=== PATIENT | male | born 1960 | race Caucasian/White ===

== ENCOUNTER 2017-05-19 20:20 | Inpatient (IN) | payer BC ==
[~2017-05-19] VITALS: Ht 162.6 cm; Wt 80.4 kg
[~2017-05-19 20:20] MED LIST: ASPI81TA3 PO; ATOR40TA68 PO; CARV6.2579 PO; ERGO500014 PO; FER325 PO; HYD25 PO; HYDR-906 PO; INSU100I31 SQ; METF500T4 PO; ONDA4TAB8 PO; PANT40TA4 PO
[2017-05-19] MEDS ORDERED: ONDANSETRON 4 MG INJ IV STA (20:40)
[2017-05-19] MEDS ORDERED: NITROGLYCERIN 2% 1 GM OINT PKT TD STA (20:40)
[2017-05-19] MEDS ORDERED: morphine 4 MG/ML VIAL IV STA (20:40)
[2017-05-19 21:00] LABS: BASOPHILS % 0.5 % (0.0-2.0); EOSINOPHILS # 0.1 10^3/ul (0.0-0.5); EOSINOPHILS % 1.7 % (0.0-7.0); HEMATOCRIT 42.9 % (42.0-52.0); HEMOGLOBIN 14.9 g/dl (14.0-18.0); LYMPHOCYTES # 2.7 10^3/ul (0.8-2.9); LYMPHOCYTES % 31.7 % (15.0-51.0); MEAN CORPUSCULAR HEMOGLOBIN 30.3 pg (29.0-33.0); MEAN CORPUSCULAR HGB CONC 34.7 g/dl (32.0-37.0); MEAN CORPUSCULAR VOLUME 87.4 fl (82.0-101.0); MEAN PLATELET VOLUME 11.8 fl (7.4-10.4); MONOCYTE # 0.7 10^3/ul (0.3-0.9); MONOCYTES % 7.9 % (0.0-11.0); NEUTROPHILS % 57.7 % (39.0-77.0); PLATELET COUNT 199 10^3/UL (140-415); RED BLOOD COUNT 4.91 10^6/ul (4.70-6.10); RED CELL DISTRIBUTION WIDTH 12.1 % (11.5-14.5); WHITE BLOOD COUNT 8.4 10^3/ul (4.8-10.8)
[2017-05-19 21:09] LABS: INR 0.81; PROTIME 11.2 Sec (12.2-14.2); PT RATIO 0.9
[2017-05-19 21:13] LABS: ALANINE AMINOTRANSFERASE 43 IU/L (13-69); ALBUMIN 4.5 g/dl (3.3-4.9); ALBUMIN/GLOBULIN RATIO 1.45; ALKALINE PHOSPHATASE 74 IU/L (42-121); ANION GAP 18 (8-16); ASPARTATE AMINO TRANSFERASE 25 IU/L (15-46); BILIRUBIN,INDIRECT 0.1 mg/dl (0-1.1); BILIRUBIN,TOTAL 0.1 mg/dl (0.2-1.3); BLOOD UREA NITROGEN 21 mg/dl (7-20); CALCIUM 9.6 mg/dl (8.4-10.2); CARBON DIOXIDE 25 mmol/L (21-31); CHLORIDE 97 mmol/L (97-110); CREATININE 0.94 mg/dl (0.61-1.24); GLUCOSE 330 mg/dl (70-220); SODIUM 136 mmol/L (135-144); TOTAL PROTEIN 7.6 g/dl (6.1-8.1)
[2017-05-19 21:25] LABS: TROPONIN-I < 0.012 ng/ml (0.00-0.12)
--- NOTE | 2017-05-19 21:52 | ERA ---
ER Documentation Chief Complaint Date/Time DATE: 05/19/17 TIME: 21:47 Chief Complaint R20, cp x3hrs gradual pressure unprovoked, radiating down lt arm, asp, nitr HPI bThis is a 56-year-old male with a history of cardiac bypass on July 16, 2016 at [facility]. The patient's patient support tech is Dr. León. The patient was brought in for chest pain. Patient states a few hours ago he developed some substernal chest pressure going on his left arm or shortness of breath and diaphoresis. The paramedics called and said it was a code STEMI however on arrival to patient just has a left bundle branch block and he is pain-free. He was given an aspirin and 3 sprays of nitroglycerin to relieve his pain. The patient had a stroke in 2008 lifting with some mild deficits in the left arm and leg. He says these tend to wax and wane in severity. ROS All systems reviewed and are negative except as per history of present illness. Medications Home Meds Active Scripts Ondansetron Hcl* (Zofran*) 4 Mg Tablet, 4 MG PO Q8H Y for NAUSEA AND/OR VOMITING , #20 TAB 0 Refills Prov:TABATHA HAWKINS 09/13/16 Hydrocodone/Acetaminophen (Dewey 5-325 Tablet) 1 Each Tablet, 2 TAB PO Q6H Y for PAIN, #20 TAB 0 Refills Prov:TABATHA HAWKINS 09/13/16 Pantoprazole* (Pantoprazole*) 40 Mg Tablet.dr, 40 MG PO DAILY@06, #60 Prov:ERICA SARKAR MD 07/23/16 Hydrochlorothiazide* (Hydrochlorothiazide*) 25 Mg Tab, 25 MG PO DAILY, #90 TAB Prov:ERICA SARKAR MD 07/23/16 Carvedilol* (Carvedilol*) 6.25 Mg Tablet, 6.25 MG PO BID, #180 TAB Prov:ERICA SARKAR MD 07/23/16 Atorvastatin* (Atorvastatin*) 40 Mg Tablet, 40 MG PO HS, #90 TAB Prov:ERICA SARKAR MD 07/23/16 Aspirin (Aspirin) 81 Mg Chew, 81 MG PO DAILY, #100 TAB Prov:ERICA SARKAR MD 07/23/16 Reported Medications Insulin Degludec (Tresiba Flextouch U-100) 100 Unit/1 Ml Insuln.pen, 30 UNIT SQ QHS 09/13/16 Ergocalciferol* (Drisdol* (Vitamin D2)) 50,000 Unit Capsule, 84084 UNIT PO Q7D, CAP 09/13/16 Metformin Hcl* (Metformin Hcl*) 500 Mg Tablet, 500 MG PO WITH BREAKFAST DINNE, # 60 TAB 09/13/16 Ferrous Sulfate* (Ferrous Sulfate*) 325 Mg Tabec, 325 MG PO BID, TAB 09/13/16 Allergies Allergies: Coded Allergies: No Known Allergies (Verified Allergy, Mild, 09/13/16) PMhx/Soc History of Surgery: Yes (CABG-2015) Anesthesia Reaction: No Hx Neurological Disorder: Yes (cva - left side weakness) Hx Respiratory Disorders: No Hx Cardiac Disorders: Yes (HTN, CAD, DYSLIPIDEMIA, DM) Hx Psychiatric Problems: No Hx Miscellaneous Medical Probl: Yes Hx Alcohol Use: No Hx Substance Use: No Hx Tobacco Use: No Smoking Status: Former smoker FmHx Family History: No coronary disease Physical Exam Vitals Vital Signs Date Time Temp Pulse Resp B/P Pulse Ox O2 Delivery O2 Flow Rate FiO2 05/19/17 20:45 87 22 110/73 99 Mask 2.0 05/19/17 20:44 Simple Mask 2 05/19/17 20:25 98.3 88 18 118/83 100 Physical Exam Const: Well-developed, well-nourished Head: Atraumatic, normocephalic Eyes: Normal Conjunctiva, PERRLA, EOMI, normal sclera, no nystagmus ENT: Normal External Ears, Nose and Mouth, moist mucus membranes. Neck: Full range of motion. No meningismus, no lymphadenopathy. Resp: Clear to auscultation bilaterally, no wheezing, rhonchi, rales Cardio: Regular rate and rhythm, no murmurs, S1 S2 present Abd: Soft, non tender x 4, non distended. Normal bowel sounds, no guarding or rebound, no pulsitile abdominal masses or bruits Skin: No petechiae or rashes, no ecchymosis , no maculopapular rash Back: No midline or flank tenderness Ext: No cyanosis, or edema, FROM x 4, normal inspection, neurovascularly intact x 4 Neur: Awake and alert, STR 5/5 x 4, sensation intact x 4, no focal findings, cerebellum intact Psych: Normal Mood and Affect Result Diagram: 05/19/17202905/19/172029 Results 24 hrs Laboratory Tests Test 05/19/17 20:30 White Blood Count 8.410^3/ul Red Blood Count 4.9110^6/ul Hemoglobin 14.9g/dl Hematocrit 42.9% Mean Corpuscular Volume 87.4fl Mean Corpuscular Hemoglobin 30.3pg Mean Corpuscular Hemoglobin Concent 34.7g/dl Red Cell Distribution Width 12.1% Platelet Count 17982^3/UL Mean Platelet Volume 11.8fl Neutrophils % 57.7% Lymphocytes % 31.7% Monocytes % 7.9% Eosinophils % 1.7% Basophils % 0.5% Nucleated Red Blood Cells % 0.0/100WBC Neutrophils # (Manual) 4.910^3/ul Lymphocytes # 2.710^3/ul Monocytes # 0.710^3/ul Eosinophils # 0.110^3/ul Basophils # 0.010^3/ul Nucleated Red Blood Cells # 0.010^3/ul Prothrombin Time 11.2Sec Prothrombin Time Ratio 0.9 INR International Normalized Ratio 0.81 Activated Partial Thromboplast Time 24.0Sec Sodium Level 136mmol/L Potassium Level 4.0mmol/L Chloride Level 97mmol/L Carbon Dioxide Level 25mmol/L Anion Gap 18 Blood Urea Nitrogen 21mg/dl Creatinine 0.94mg/dl Glucose Level 330mg/dl Calcium Level 9.6mg/dl Total Bilirubin 0.1mg/dl Direct Bilirubin 0.00mg/dl Indirect Bilirubin 0.1mg/dl Aspartate Amino Transf (AST/SGOT) 25IU/L Alanine Aminotransferase (ALT/SGPT) 43IU/L Alkaline Phosphatase 74IU/L Troponin I < 0.012ng/ml Total Protein 7.6g/dl Albumin 4.5g/dl Globulin 3.10g/dl Albumin/Globulin Ratio 1.45 Current Medications Medications (Trade) Dose Ordered Sig/Erika Route PRN Reason Start Time Stop Time Status Last Admin Dose Admin Nitroglycerin (Nitroglycerin 2% Oint) 1 inch ONCE STAT TD 05/19/17 20:40 05/19/17 20:42 DC 05/19/17 20:58 Morphine Sulfate (morphine) 4 mg ONCE STAT IV 05/19/17 20:40 05/19/17 20:42 DC 05/19/17 20:54 Ondansetron HCl (Zofran Inj) 4 mg ONCE STAT IV 05/19/17 20:40 05/19/17 20:43 DC 05/19/17 20:52 IV Flush (NS 3 ml) 3 ml PER PROTOCOL IV 05/19/17 22:30 UNV Ondansetron HCl (Zofran Inj) 4 mg Q6H PRN IV NAUSEA AND/OR VOMITING 05/19/17 22:30 UNV Aspirin (Aspirin) 81 mg DAILY PO 05/20/17 09:00 UNV Morphine Sulfate (morphine) 2 mg Q4H PRN IV PAIN LEVEL 7-10 05/19/17 22:30 UNV Famotidine (Pepcid Iv) 20 mg Q12 IV 05/20/17 09:00 UNV Enoxaparin Sodium (Lovenox) 30 mg DAILY SC 05/20/17 09:00 UNV Miscellaneous Information (* Miscellaneous Pharmacy Order) Discontinue current oral sulfonylur... ONCE ONCE XX 05/19/17 22:30 05/19/17 22:31 UNV Diagnostic Test (Pha) (Accu-Chek) 1 ea 02 XX 05/20/17 02:00 UNV Insulin Aspart (Novolog Insulin Pen) 5 unit WITH MEALS SC 05/20/17 08:00 UNV Miscellaneous Information (* Miscellaneous Pharmacy Order) HYPOGLYCEMIA PROTOCOL w... ONCE ONCE XX 05/19/17 22:30 05/19/17 22:31 UNV Miscellaneous Information (* Miscellaneous Pharmacy Order) Discontinue all previ... ONCE ONCE XX 05/19/17 22:30 05/19/17 22:31 UNV Aspirin (Aspirin) 81 mg DAILY PO 05/20/17 09:00 UNV Atorvastatin Calcium (Lipitor) 40 mg HS PO 05/20/17 21:00 UNV Carvedilol (Coreg) 6.25 mg BID PO 05/20/17 09:00 UNV Ergocalciferol (Drisdol) 50,000 unit Q7D PO 05/19/17 22:30 UNV Ferrous Sulfate (Ferrous Sulfate (Ec)) 325 mg BID PO 05/20/17 09:00 UNV Hydrochlorothiazide (Hydrochlorothiazide) 25 mg DAILY PO 05/20/17 09:00 UNV Acetaminophen/ Hydrocodone Bitart ([place] (5/325)) 2 tab Q6H PRN PO PAIN 05/19/17 22:30 UNV Metformin HCl (Glucophage) 500 mg WITH BREAKFAST DINNE PO 05/20/17 08:00 UNV Ondansetron HCl (Zofran Tab) 4 mg Q8H PRN PO NAUSEA AND/OR VOMITING 05/19/17 22:30 UNV Pantoprazole (Protonix Tab) 40 mg DAILY@06 PO 05/20/17 06:00 UNV Procedures/MDM EKG: Rate/Rhythm: Normal sinus rhythm left bundle branch block QRS, ST, QT: NORMAL AK, wide left bundle branch block QRS, QT] Impression: [NORMAL EKG] Patient's symptoms are concerning for cardiac cause will require inpatient workup and continuous monitoring. Further w/u for ischemia, arrhythmia, PE or dissection will be deferred to the inpatient team. Accepting Care Team: Current data and ongoing care discussed. Time: Time of admission Primary Provider: regi Consulting: [XOXOXO] Outstanding Data: none Departure Diagnosis: Primary Impression: Chest pain Qualified Code: R07.9 - Chest pain, unspecified type Condition: PAKO Aguilar DO May 19, 2017 21:52
[2017-05-19] MEDS ORDERED: SOD CHLORIDE 0.9% 1,000 ML IV SCH (22:21)
[2017-05-19] MEDS ORDERED: ONDANSETRON 4 MG TAB PO PRN (22:30)
[2017-05-19] MEDS ORDERED: morphine 2 MG INJ IV PRN (22:30)
[2017-05-19] MEDS ORDERED: NACL 0.9% 3 ML SYG IV SCH (22:30)
[2017-05-19] MEDS ORDERED: HYDROCODONE/APAP (5/325) TAB PO PRN (22:30)
[2017-05-19] MEDS ORDERED: ONDANSETRON 4 MG INJ IV PRN ×2 (22:30)
--- NOTE | 2017-05-19 22:31 | RADRPT ---
PROCEDURE: XR Chest. CLINICAL INDICATION: Chest pain. TECHNIQUE: Portable AP semi erect view of the chest was obtained. COMPARISON: 09/13/2016 FINDINGS: The cardiomediastinal silhouette is within upper normal limits. Left greater than right lower lobe atelectasis is present similar to the prior examination. Blunting of the costophrenic angles is wor se on the left consistent with bilateral pleural effusions. There is no evidence of pulmonary vascu lar congestion. No pneumothorax is seen. Sternotomy wires are again noted without evidence of acut e osseous abnormality. RPTAT:HJJR IMPRESSION: 1. Left greater than right lower lobe compressive atelectasis believed to be related to bilateral p leural effusions similar to the prior study of 09/13/2016. 2. No evidence of pulmonary vascular congestion to suggest congestive heart failure. 3. Post thoracotomy changes are again seen. Physician Yohannes Date Time Electronically viewed and signed by Physician Yohannes on 05/19/2017 22:31 /
[2017-05-19 23:03] VITALS: TEMP 98.3
[2017-05-19 23:22] LABS: CREATINE KINASE 91 IU/L (23-200)
[2017-05-19] MEDS ORDERED: GLUCAGON 1 MG INJ IM PRN (23:30)
[2017-05-19] MEDS ORDERED: GLUCOSE GEL 15 GRAM TUBE PO PRN ×2 (23:30)
[2017-05-19] MEDS ORDERED: GLUCOSE GEL 15 GRAM TUBE BUCCAL PRN (23:30)
[2017-05-19] MEDS ORDERED: DEXTROSE 50% 50 ML SYRINGE IV PRN ×2 (23:30)
[2017-05-19 23:59] VITALS: PULSE 68
[2017-05-20] VITALS (11 sets, daily range): BP systolic 92–118; BP diastolic 62–84; PULSE 69–85; RESP 18–20; Ht 162.6 cm; Wt 80.4 kg
[2017-05-20 00:01] LABS: CK-MB 1.05 ng/ml (0.0-2.4); TROPONIN-I < 0.012 ng/ml (0.00-0.12)
[2017-05-20] MEDS: ACCU-CHEK XX SCH (02:00)
[2017-05-20] MEDS: ACETAMINOPHEN 325 MG TAB PO PRN ×2 (04:38→07:58)
[2017-05-20 05:10] LABS: BASOPHIL # 0.1 10^3/ul (0.0-0.1); BASOPHILS % 0.9 % (0.0-2.0); EOSINOPHILS # 0.1 10^3/ul (0.0-0.5); HEMATOCRIT 38.4 % (42.0-52.0); HEMOGLOBIN 12.7 g/dl (14.0-18.0); LYMPHOCYTES % 34.5 % (15.0-51.0); MEAN CORPUSCULAR HEMOGLOBIN 29.7 pg (29.0-33.0); MEAN CORPUSCULAR HGB CONC 33.1 g/dl (32.0-37.0); MEAN CORPUSCULAR VOLUME 89.7 fl (82.0-101.0); MEAN PLATELET VOLUME 11.9 fl (7.4-10.4); MONOCYTE # 0.6 10^3/ul (0.3-0.9); MONOCYTES % 9.7 % (0.0-11.0); NEUTROPHILS % 52.4 % (39.0-77.0); PLATELET COUNT 162 10^3/UL (140-415); RED BLOOD COUNT 4.28 10^6/ul (4.70-6.10); RED CELL DISTRIBUTION WIDTH 12.5 % (11.5-14.5); WHITE BLOOD COUNT 5.9 10^3/ul (4.8-10.8)
[2017-05-20] MEDS: PANTOPRAZOLE (EC) 40 MG TAB PO SCH (05:21)
[2017-05-20 05:33] LABS: CREATINE KINASE 93 IU/L (23-200)
[2017-05-20 05:35] LABS: ALBUMIN 3.7 g/dl (3.3-4.9); ALBUMIN/GLOBULIN RATIO 1.42; BILIRUBIN,INDIRECT 0.1 mg/dl (0-1.1); BILIRUBIN,TOTAL 0.1 mg/dl (0.2-1.3); CALCIUM 8.7 mg/dl (8.4-10.2); CREATININE 0.85 mg/dl (0.61-1.24); POTASSIUM 4.1 mmol/L (3.5-5.1); TOTAL PROTEIN 6.3 g/dl (6.1-8.1)
[2017-05-20 06:14] LABS: CK-MB 0.69 ng/ml (0.0-2.4); TROPONIN-I < 0.012 ng/ml (0.00-0.12)
[2017-05-20] MEDS: INSULIN ASPART [NOVOLOG] 3 ML PEN SC SCH ×5 (07:55→20:50)
[2017-05-20] MEDS: metFORMIN 500 MG TAB PO SCH ×2 (08:00→17:45)
[2017-05-20] MEDS: FAMOTIDINE 20 MG INJ IV SCH ×2 (08:15→20:27)
[2017-05-20] MEDS: ASPIRIN 81 MG TAB PO SCH (08:16)
[2017-05-20] MEDS: FERROUS SULFATE (EC) 325 MG TAB PO SCH ×2 (08:16→20:27)
[2017-05-20] MEDS: ENOXAPARIN 30 MG/0.3 ML SYG SC SCH (08:19)
[2017-05-20] MEDS ORDERED: ERGOCALCIFEROL 50,000 UNIT CAP PO SCH (09:00)
[2017-05-20] MEDS: HYDROCHLOROTHIAZIDE 25 MG TAB PO SCH (09:00)
[2017-05-20] MEDS ORDERED: ASPIRIN 81 MG TAB PO SCH (09:00)
--- NOTE | 2017-05-20 10:28 | HP ---
Date/Time of Note Date/Time of Note DATE: 05/20/17 TIME: 10:25 Assessment/Plan VTE Prophylaxis VTE Prophylaxis Intervention: other Lines/Catheters Urinary Cath still in place: No Assessment/Plan Chief Complaint/Hosp Course 1) chest pain - myocardial infarction ruled out by enzymes - cardiology consult for further evaluation 2) left arm pain and swelling - r/o dVT 3) diabetes - monitor blood sugar 4) hypertension - continue medications Problems: HPI/ROS Admit Date/Time Admit Date/Time May 19, 2017 at 22:22 Hx of Present Illness 56 year old with hypertension, diabetes, hypercholesterolemia, previous cerebrovascular accident, previous myocardial infarction, s/p CABG comes in complaining of chest pain, shortness of breath, diaphoresis for 1 hour. Patient is admitted for further evaluation. PMH/Family/Social Past Medical History Medical History: diabetes, high cholesterol, hypertension Past Surgical History Past Surgical Hx: no surgical history Social History Alcohol Use: none Smoking Status: Never smoker Exam/Review of Systems Vital Signs Vitals Vital Signs Date Time Temp Pulse Resp B/P Pulse Ox O2 Delivery O2 Flow Rate FiO2 05/20/17 08:10 69 05/20/17 07:08 98.6 18 92/62 98 05/20/17 00:20 Room Air 05/19/17 20:45 2.0 Intake and Output 05/19/17 05/19/17 05/20/17 14:59 22:59 06:59 Intake Total 440 ml Balance 440 ml Exam Constitutional: well developed Head: atraumatic, normocephalic Neck: supple Respiratory: clear to auscultation Cardiovascular: regular rate and rhythm Gastrointestinal: non-tender, soft Extremities: normal pulses Labs Result Diagram: 05/20/17 0428 05/20/17 0428 Medications Medications Current Medications Ondansetron HCl (Zofran Inj) 4 mg Q6H PRN IV NAUSEA AND/OR VOMITING; Start 05/19 at 22:30 Aspirin (Aspirin) 81 mg DAILY PO Last administered on 05/20/17 08:16; Admin Dose 81 MG; Start 05/20/17 at 09:00 Morphine Sulfate (morphine) 2 mg Q4H PRN IV PAIN LEVEL 7-10; Start 05/19/17 at 22:30 Famotidine (Pepcid Iv) 20 mg Q12 IV Last administered on 05/20/17 08:15; Admin Dose 20 MG; Start 05/20/17 at 09:00 Enoxaparin Sodium (Lovenox) 30 mg DAILY SC Last administered on 05/20/17 08:19 ; Admin Dose 30 MG; Start 05/20/17 at 09:00 Diagnostic Test (Pha) (Accu-Chek) 1 ea 02 XX ; Start 05/20/17 at 02:00 Aspirin (Aspirin) 81 mg DAILY PO ; Start 05/20/17 at 09:00 Atorvastatin Calcium (Lipitor) 40 mg HS PO ; Start 05/20/17 at 21:00 Carvedilol (Coreg) 6.25 mg BID PO ; Start 05/20/17 at 09:00 Ergocalciferol (Drisdol) 50,000 unit Q7D PO Last administered on 05/20/17 10:05 ; Admin Dose 50,000 UNIT; Start 05/20/17 at 09:00 Ferrous Sulfate (Ferrous Sulfate (Ec)) 325 mg BID PO Last administered on 08:16; Admin Dose 325 MG; Start 05/20/17 at 09:00 Hydrochlorothiazide (Hydrochlorothiazide) 25 mg DAILY PO ; Start 05/20/17 at 09: 00 Acetaminophen/ Hydrocodone Bitart ([place] (5/325)) 2 tab Q6H PRN PO PAIN; Start 05/19/17 at 22:30 Ondansetron HCl (Zofran Tab) 4 mg Q8H PRN PO NAUSEA AND/OR VOMITING; Start 05/19 at 22:30 Pantoprazole 40 mg 40 mg DAILY@06 PO Last administered on 05/20/17 05:21; Admin Dose 40 MG; Start 05/20/17 at 06:00 Sodium Chloride (NS) 1,000 ml @ 80 mls/hr [id number] IV Last administered on 01:32; Admin Dose 80 MLS/HR; Start 05/19/17 at 22:21; Stop 05/20/17 at 10:50 Miscellaneous Information 1 ea NOTE XX ; Start 05/19/17 at 23:30 Glucose (Glutose) 15 gm Q15M PRN PO DECREASED GLUCOSE; Start 05/19/17 at 23:30 Glucose (Glutose) 22.5 gm Q15M PRN PO DECREASED GLUCOSE; Start 05/19/17 at 23:30 Dextrose (D50w Syringe) 25 ml Q15M PRN IV DECREASED GLUCOSE; Start 05/19/17 at 23:30 Dextrose (D50w Syringe) 50 ml Q15M PRN IV DECREASED GLUCOSE; Start 05/19/17 at 23:30 Glucagon (Glucagen) 1 mg Q15M PRN IM DECREASED GLUCOSE; Start 05/19/17 at 23:30 Glucose (Glutose) 15 gm Q15M PRN BUCCAL DECREASED GLUCOSE; Start 05/19/17 at 23: 30 SANTO SHARMA May 20, 2017 10:27
--- NOTE | 2017-05-20 16:52 | RADRPT ---
PROCEDURE: Left upper extremity venous ultrasound CLINICAL INDICATION: Left arm pain and swelling. Deep venous thrombosis. TECHNIQUE: Weeks scale, color doppler, spectral doppler ultrasound imaging of the venous system of the left upper extremity. Augmentation maneuvers were utilized. COMPARISON: No prior studies are available for comparison. FINDINGS: LEFT: Internal jugular vein: Patent. Subclavian vein: Patent. Axillary vein: Patent. Brachial vein: Patent. Basilic vein: Patent. Cephalic vein: Patent. Radial vein: Patent. Ulnar vein: Patent. IMPRESSION: No evidence of a deep vein thrombosis involving the left upper extremity. RPTAT: AADD .Rick Mendenhall MD, MD Date Time Electronically viewed and signed by .Rick Mendenhall MD, MD on 05/20/2017 16:52 .B/
[2017-05-20] MEDS ORDERED: INSULIN ASPART [NOVOLOG] 3 ML PEN SC SCH (17:25)
[2017-05-20] MEDS: ATORVASTATIN 40 MG TAB PO SCH (20:27)
[2017-05-21] VITALS (12 sets, daily range): BP systolic 109–124; BP diastolic 64–75; PULSE 65–81; RESP 18–19
[2017-05-21] MEDS: ACCU-CHEK XX SCH ×2 (02:00)
[2017-05-21] MEDS ORDERED: ACCU-CHEK XX SCH (02:00)
[2017-05-21] MEDS: PANTOPRAZOLE (EC) 40 MG TAB PO SCH (06:16)
[2017-05-21] MEDS: metFORMIN 500 MG TAB PO SCH ×2 (08:39→17:58)
[2017-05-21] MEDS: FAMOTIDINE 20 MG INJ IV SCH (08:39)
[2017-05-21] MEDS: ENOXAPARIN 30 MG/0.3 ML SYG SC SCH (08:40)
[2017-05-21] MEDS: INSULIN ASPART [NOVOLOG] 3 ML PEN SC SCH ×7 (08:41→21:21)
[2017-05-21] MEDS: ASPIRIN 81 MG TAB PO SCH (08:43)
[2017-05-21] MEDS: HYDROCHLOROTHIAZIDE 25 MG TAB PO SCH (08:44)
[2017-05-21] MEDS: FERROUS SULFATE (EC) 325 MG TAB PO SCH ×2 (08:47→21:12)
[2017-05-21] MEDS: ACETAMINOPHEN 325 MG TAB PO PRN ×3 (09:35→22:44)
--- NOTE | 2017-05-21 15:13 | PN ---
Date/Time of Note Date/Time of Note DATE: 05/21/17 TIME: 14:54 Assessment/Plan VTE Prophylaxis VTE Prophylaxis Intervention: other Lines/Catheters Urinary Cath still in place: No Assessment/Plan Assessment/Plan 1- c/o head pain - CT brain with no contrast- FU result. Tylenol is effective. 1) chest pain - myocardial infarction ruled out by enzymes - cardiology consult for further evaluation- Dr Lowry notified today 2) left arm pain and swelling - r/o dVT- negative 3) diabetes - monitor blood sugar 4) hypertension - continue medications at bed side- translated, - all Qs ANSWERED. dw staff Subjective 24 Hr Interval Summary Genitourinary: no complaints Musculoskeletal: no complaints Skin: no complaints Neurologic: no complaints Exam/Review of Systems Vital Signs Vitals Vital Signs Date Time Temp Pulse Resp B/P Pulse Ox O2 Delivery O2 Flow Rate FiO2 05/21/17 12:16 98.7 66 18 111/64 95 05/20/17 00:20 Room Air 05/19/17 20:45 2.0 Intake and Output 05/20/17 05/20/17 05/21/17 15:00 23:00 07:00 Intake Total 1200 ml 250 ml Balance 1200 ml 250 ml Exam Constitutional: alert, well developed Respiratory: clear to auscultation, normal air movement Gastrointestinal: non-tender, soft Musculoskeletal: nl extremities to inspection Extremities: normal pulses Neurological: nl mental status, nl speech Results Result Diagram: 05/20/17 0428 05/20/17 0428 Results 24 hrs Laboratory Tests Test 05/20/17 17:38 05/20/17 20:26 05/21/17 02:05 05/21/17 07:59 Bedside Glucose 295 H 199 154 175 Test 05/21/17 12:03 Bedside Glucose 231 H Medications Medications Current Medications Ondansetron HCl (Zofran Inj) 4 mg Q6H PRN IV NAUSEA AND/OR VOMITING; Start 05/19 at 22:30 Aspirin (Aspirin) 81 mg DAILY PO Last administered on 05/21/17t 08:43; Admin Dose 81 MG; Start 05/20/17 at 09:00 Morphine Sulfate (morphine) 2 mg Q4H PRN IV PAIN LEVEL 7-10; Start 05/19/17 at 22:30 Famotidine (Pepcid Iv) 20 mg Q12 IV Last administered on 05/21/17 08:39; Admin Dose 20 MG; Start 05/20/17 at 09:00 Enoxaparin Sodium (Lovenox) 30 mg DAILY SC Last administered on 05/21/17 08:40 ; Admin Dose 30 MG; Start 05/20/17 at 09:00 Diagnostic Test (Pha) (Accu-Chek) 1 ea 02 XX Last administered on 05/21/17 02: 00; Admin Dose 1 EA; Start 05/20/17 at 02:00 Atorvastatin Calcium (Lipitor) 40 mg HS PO Last administered on 05/20/17 20:27 ; Admin Dose 40 MG; Start 05/20/17 at 21:00 Carvedilol (Coreg) 6.25 mg BID PO Last administered on 05/21/17 08:43; Admin Dose 6.25 MG; Start 05/20/17 at 09:00 Ergocalciferol (Drisdol) 50,000 unit Q7D PO Last administered on 05/20/17 10:05 ; Admin Dose 50,000 UNIT; Start 05/20/17 at 09:00 Ferrous Sulfate (Ferrous Sulfate (Ec)) 325 mg BID PO Last administered on 08:47; Admin Dose 325 MG; Start 05/20/17 at 09:00 Hydrochlorothiazide (Hydrochlorothiazide) 25 mg DAILY PO Last administered on 08:44; Admin Dose 25 MG; Start 05/20/17 at 09:00 Acetaminophen/ Hydrocodone Bitart ([place] (5/325)) 2 tab Q6H PRN PO PAIN Last administered on 05/20/17 21:36; Admin Dose 1 TAB; Start 05/19/17 at 22:30 Ondansetron HCl (Zofran Tab) 4 mg Q8H PRN PO NAUSEA AND/OR VOMITING; Start 05/19 at 22:30 Pantoprazole (Protonix Tab) 40 mg DAILY@06 PO Last administered on 05/21/17 06: 16; Admin Dose 40 MG; Start 05/20/17 at 06:00 Miscellaneous Information 1 ea NOTE XX ; Start 05/19/17 at 23:30 Glucose (Glutose) 15 gm Q15M PRN PO DECREASED GLUCOSE; Start 05/19/17 at 23:30 Glucose (Glutose) 22.5 gm Q15M PRN PO DECREASED GLUCOSE; Start 05/19/17 at 23:30 Dextrose (D50w Syringe) 25 ml Q15M PRN IV DECREASED GLUCOSE; Start 05/19/17 at 23:30 Dextrose (D50w Syringe) 50 ml Q15M PRN IV DECREASED GLUCOSE; Start 05/19/17 at 23:30 Glucagon (Glucagen) 1 mg Q15M PRN IM DECREASED GLUCOSE; Start 05/19/17 at 23:30 Glucose (Glutose) 15 gm Q15M PRN BUCCAL DECREASED GLUCOSE; Start 05/19/17 at 23: 30 Diagnostic Test (Pha) (Accu-Chek) 1 ea 02 XX Last administered on 05/21/17 02: 00; Admin Dose 1 EA; Start 05/21/17 at 02:00 Acetaminophen (Tylenol Tab) 650 mg Q6H PRN PO PAIN AND OR ELEVATED TEMP Last administered on 05/21/17 09:35; Admin Dose 650 MG; Start 05/21/17 at 08:00 LIAM CARRILLO May 21, 2017 15:06
[2017-05-21] MEDS: ATORVASTATIN 40 MG TAB PO SCH (21:12)
[2017-05-21] MEDS: INSULIN GLARGINE [LANtus] 3 ML PEN SC SCH (21:20)
--- NOTE | 2017-05-21 22:03 | CONS ---
Date/Time of Note Date/Time of Note DATE: 05/21/17 TIME: 21:53 Assessment/Plan Assessment/Plan Additional Assessment/Plan 1. Observation for possible cardiovascular symptoms 2. Coronary artery disease 3. S/P CABG 4. Anxiety 5. Obesity 6. Hyperlipidemia Plan: Rule out ACS. Optimize medical treatment GANESH AGUILAR MD Consultation Date/Type/Reason Admit Date/Time May 19, 2017 at 22:22 Hx of Present Illness 56 year old with hypertension, diabetes, hypercholesterolemia, previous cerebrovascular accident, previous myocardial infarction, s/p CABG comes in complaining of chest pain, shortness of breath, diaphoresis for 1 hour. Patient is admitted for further evaluation Cardiovascular: chest pain, palpitations Genitourinary: no complaints Musculoskeletal: no complaints Skin: no complaints Neurologic: no complaints Past Medical History Medical History: diabetes, high cholesterol, hypertension. Past Surgical History CABG surgery Social History Alcohol Use: none Smoking Status: Never smoker Exam/Review of Systems Vital Signs Vitals Vital Signs Date Time Temp Pulse Resp B/P Pulse Ox O2 Delivery O2 Flow Rate FiO2 05/21/17 20:05 97.8 73 19 117/69 95 05/20/17 00:20 Room Air 05/19/17 20:45 2.0 Intake and Output 05/20/17 05/20/17 05/21/17 15:00 23:00 07:00 Intake Total 1200 ml 250 ml Balance 1200 ml 250 ml Exam Constitutional: alert, oriented, other (headaches?) Psych: anxiety, no complaints Head: atraumatic Neck: non-tender, supple Extremities: normal pulses Results Result Diagram: 05/20/17 0428 05/20/17 0428 Results 24 hrs Laboratory Tests Test 05/21/17 02:05 05/21/17 07:59 05/21/17 12:03 05/21/17 17:32 Bedside Glucose 154 175 231 H 113 Test 05/21/17 21:10 Bedside Glucose 204 Medications Medications Current Medications Ondansetron HCl (Zofran Inj) 4 mg Q6H PRN IV NAUSEA AND/OR VOMITING; Start 05/19 at 22:30 Aspirin (Aspirin) 81 mg DAILY PO Last administered on 05/21/17t 08:43; Admin Dose 81 MG; Start 05/20/17 at 09:00 Morphine Sulfate (morphine) 2 mg Q4H PRN IV PAIN LEVEL 7-10; Start 05/19/17 at 22:30 Enoxaparin Sodium (Lovenox) 30 mg DAILY SC Last administered on 05/21/17 08:40 ; Admin Dose 30 MG; Start 05/20/17 at 09:00 Diagnostic Test (Pha) (Accu-Chek) 1 ea 02 XX Last administered on 05/21/17 02: 00; Admin Dose 1 EA; Start 05/20/17 at 02:00 Atorvastatin Calcium (Lipitor) 40 mg HS PO Last administered on 05/21/17 21:12 ; Admin Dose 40 MG; Start 05/20/17 at 21:00 Carvedilol (Coreg) 6.25 mg BID PO Last administered on 05/21/17 21:11; Admin Dose 6.25 MG; Start 05/20/17 at 09:00 Ergocalciferol (Drisdol) 50,000 unit Q7D PO Last administered on 05/20/17 10:05 ; Admin Dose 50,000 UNIT; Start 05/20/17 at 09:00 Ferrous Sulfate (Ferrous Sulfate (Ec)) 325 mg BID PO Last administered on 21:12; Admin Dose 325 MG; Start 05/20/17 at 09:00 Hydrochlorothiazide (Hydrochlorothiazide) 25 mg DAILY PO Last administered on 08:44; Admin Dose 25 MG; Start 05/20/17 at 09:00 Acetaminophen/ Hydrocodone Bitart ([place] (5/325)) 2 tab Q6H PRN PO PAIN Last administered on 05/20/17 21:36; Admin Dose 1 TAB; Start 05/19/17 at 22:30 Ondansetron HCl (Zofran Tab) 4 mg Q8H PRN PO NAUSEA AND/OR VOMITING; Start 05/19 at 22:30 Pantoprazole (Protonix Tab) 40 mg DAILY@06 PO Last administered on 05/21/17 06: 16; Admin Dose 40 MG; Start 05/20/17 at 06:00 Miscellaneous Information 1 ea NOTE XX ; Start 05/19/17 at 23:30 Glucose (Glutose) 15 gm Q15M PRN PO DECREASED GLUCOSE; Start 05/19/17 at 23:30 Glucose (Glutose) 22.5 gm Q15M PRN PO DECREASED GLUCOSE; Start 05/19/17 at 23:30 Dextrose (D50w Syringe) 25 ml Q15M PRN IV DECREASED GLUCOSE; Start 05/19/17 at 23:30 Dextrose (D50w Syringe) 50 ml Q15M PRN IV DECREASED GLUCOSE; Start 05/19/17 at 23:30 Glucagon (Glucagen) 1 mg Q15M PRN IM DECREASED GLUCOSE; Start 05/19/17 at 23:30 Glucose (Glutose) 15 gm Q15M PRN BUCCAL DECREASED GLUCOSE; Start 05/19/17 at 23: 30 Diagnostic Test (Pha) (Accu-Chek) 1 ea 02 XX Last administered on 05/21/17 02: 00; Admin Dose 1 EA; Start 05/21/17 at 02:00 Acetaminophen (Tylenol Tab) 650 mg Q6H PRN PO PAIN AND OR ELEVATED TEMP Last administered on 05/21/17 15:34; Admin Dose 650 MG; Start 05/21/17 at 08:00 Insulin Glargine (Lantus) 20 unit DAILY@20 SC Last administered on 05/21/17 21: 20; Admin Dose 20 UNIT; Start 05/21/17 at 20:00 GANESH AGUILAR MD May 21, 2017 22:03
[2017-05-22] VITALS (11 sets, daily range): BP systolic 115–136; BP diastolic 66–79; PULSE 61–82; RESP 16–18
--- NOTE | 2017-05-22 00:28 | RADRPT ---
PROCEDURE: CT Brain without contrast. CLINICAL INDICATION: Headache TECHNIQUE: A multiplanar CT of the brain was performed on a CT scanner utilizing axial imaging fro m the skull base through the vertex without IV contrast. The CTDIvol is 44.3 mGy and the DLP is 720 .23 mGycm. One or more of the following dose reduction techniques were utilized: Automated exposur e control, adjustment of the mA and/or kV according to patient size, use of iterative reconstruction technique. COMPARISON: 07/09/2016 MR brain FINDINGS: No evidence of intracranial hemorrhage or abnormal extra-axial fluid collection. The brain parenchyma is normal attenuation morphology with preservation of spangler white differentiatio n and age appropriate size of the ventricles and subarachnoid spaces. Opacification left maxillary s inus. The basal cisterns, posterior fossa contents, brainstem, craniocervical junction, orbits, pituitary axis, paranasal sinuses, mastoid air cells, and calvarium are unremarkable. IMPRESSION: 1. No intracranial hemorrhage or acute intracranial abnormality. Clinical symptoms persist, MRI may be considered for further evaluation. RPTAT:AAJJ Physician James Date Time Electronically viewed and signed by Physician James on 05/22/2017 00:27 RUDOLPH/
[2017-05-22] MEDS: ACCU-CHEK XX SCH ×2 (02:30)
[2017-05-22] MEDS: PANTOPRAZOLE (EC) 40 MG TAB PO SCH (06:21)
[2017-05-22] MEDS: metFORMIN 500 MG TAB PO SCH ×2 (08:08→17:08)
[2017-05-22] MEDS: ASPIRIN 81 MG TAB PO SCH (08:08)
[2017-05-22] MEDS: FERROUS SULFATE (EC) 325 MG TAB PO SCH ×2 (08:08→21:45)
[2017-05-22] MEDS: HYDROCHLOROTHIAZIDE 25 MG TAB PO SCH (08:09)
[2017-05-22] MEDS: INSULIN ASPART [NOVOLOG] 3 ML PEN SC SCH ×7 (08:17→21:53)
[2017-05-22 08:23] LABS: BASOPHILS % 0.6 % (0.0-2.0); EOSINOPHILS # 0.1 10^3/ul (0.0-0.5); EOSINOPHILS % 1.7 % (0.0-7.0); HEMATOCRIT 41.4 % (42.0-52.0); HEMOGLOBIN 13.4 g/dl (14.0-18.0); LYMPHOCYTES % 30.7 % (15.0-51.0); MEAN CORPUSCULAR HEMOGLOBIN 29.3 pg (29.0-33.0); MEAN CORPUSCULAR HGB CONC 32.4 g/dl (32.0-37.0); MEAN CORPUSCULAR VOLUME 90.4 fl (82.0-101.0); MONOCYTE # 0.5 10^3/ul (0.3-0.9); MONOCYTES % 7.8 % (0.0-11.0); NEUTROPHILS % 58.9 % (39.0-77.0); PLATELET COUNT 143 10^3/UL (140-415); RED BLOOD COUNT 4.58 10^6/ul (4.70-6.10); RED CELL DISTRIBUTION WIDTH 12.3 % (11.5-14.5); WHITE BLOOD COUNT 6.4 10^3/ul (4.8-10.8)
[2017-05-22] MEDS: ENOXAPARIN 30 MG/0.3 ML SYG SC SCH (08:56)
[2017-05-22 09:02] LABS: CALCIUM 9.3 mg/dl (8.4-10.2); CREATININE 0.76 mg/dl (0.61-1.24); POTASSIUM 3.8 mmol/L (3.5-5.1)
--- NOTE | 2017-05-22 14:12 | CONS ---
Date/Time of Note Date/Time of Note DATE: 05/22/17 TIME: 14:09 Assessment/Plan Assessment/Plan Chief Complaint/Hosp Course IMP: 1.CHest pain-negative trop x 3 2.Cad s/p cab g- 06/2016 x 3 vessels 3.HTN 4.HL 5. DM Recc: -Tele -serial ecg's -Continue statin -Continue asa -Continue coreg -AM lexiscan Problems: Consultation Date/Type/Reason Admit Date/Time May 19, 2017 at 22:22 Initial Consult Date 05/21/2017 Type of Consultation: cardiology Reason for Consultation CHest pain Referring Provider: ZAKIYA BOURGEOIS MD Exam/Review of Systems Vital Signs Vitals Vital Signs Date Time Temp Pulse Resp B/P Pulse Ox O2 Delivery O2 Flow Rate FiO2 05/22/17 12:00 69 05/22/17 11:37 98.1 16 116/66 98 Room Air 05/19/17 20:45 2.0 Intake and Output 05/21/17 05/21/17 05/22/17 15:00 23:00 07:00 Intake Total 800 ml 250 ml Output Total 2 ml Balance 800 ml 248 ml Exam Review of Systems: CONSTITUTIONAL: No fevers, chills. PULMONARY: No sob CARDIOVASCULAR: intermittent chest pain GASTROINTESTINAL: No nausea/vomiting. GENITOURINARY: No hematuria/dysuria. MUSCULOSKELETAL: No myagias/arthalgias. PSYCHIATRIC: The patient denies depression. NEUROLOGIC: No weakness Constitutional: alert, oriented Psych: no complaints Head: normocephalic ENMT: mucosa pink and moist Neck: jvd (8 cm water), supple Respiratory: clear to auscultation Cardiovascular: regular rate and rhythm Gastrointestinal: non-tender, soft Musculoskeletal: muscle tone (normal) Extremities: edema (none) Neurological: other (No focal deficits) Results Result Diagram: 05/22/17 0736 05/22/17 0736 Results 24 hrs Laboratory Tests Test 05/21/17 17:32 05/21/17 21:10 05/22/17 02:33 05/22/17 07:31 Bedside Glucose 113 204 197 172 Test 05/22/17 07:36 05/22/17 11:33 White Blood Count 6.4 Red Blood Count 4.58 L Hemoglobin 13.4 L Hematocrit 41.4 L Mean Corpuscular Volume 90.4 Mean Corpuscular Hemoglobin 29.3 Mean Corpuscular Hemoglobin Concent 32.4 Red Cell Distribution Width 12.3 Platelet Count 143 Mean Platelet Volume 12.0 H Neutrophils % 58.9 Lymphocytes % 30.7 Monocytes % 7.8 Eosinophils % 1.7 Basophils % 0.6 Nucleated Red Blood Cells % 0.0 Neutrophils # (Manual) 3.8 Lymphocytes # 2.0 Monocytes # 0.5 Eosinophils # 0.1 Basophils # 0.0 Nucleated Red Blood Cells # 0.0 Sodium Level 136 Potassium Level 3.8 Chloride Level 101 Carbon Dioxide Level 27 Anion Gap 12 Blood Urea Nitrogen 19 Creatinine 0.76 Glucose Level 191 Hemoglobin A1c 12.0 H Calcium Level 9.3 Bedside Glucose 221 H Medications Medications Current Medications Ondansetron HCl (Zofran Inj) 4 mg Q6H PRN IV NAUSEA AND/OR VOMITING; Start 05/19 at 22:30 Aspirin (Aspirin) 81 mg DAILY PO Last administered on 05/22/17 08:08; Admin Dose 81 MG; Start 05/20/17 at 09:00 Morphine Sulfate (morphine) 2 mg Q4H PRN IV PAIN LEVEL 7-10; Start 05/19/17 at 22:30 Enoxaparin Sodium (Lovenox) 30 mg DAILY SC Last administered on 05/22/17 08:56 ; Admin Dose 30 MG; Start 05/20/17 at 09:00 Diagnostic Test (Pha) (Accu-Chek) 1 ea 02 XX Last administered on 05/22/17 02: 30; Admin Dose 1 EA; Start 05/20/17 at 02:00 Atorvastatin Calcium (Lipitor) 40 mg HS PO Last administered on 05/21/17 21:12 ; Admin Dose 40 MG; Start 05/20/17 at 21:00 Carvedilol (Coreg) 6.25 mg BID PO Last administered on 05/22/17 08:08; Admin Dose 6.25 MG; Start 05/20/17 at 09:00 Ergocalciferol (Drisdol) 50,000 unit Q7D PO Last administered on 05/20/17 10:05 ; Admin Dose 50,000 UNIT; Start 05/20/17 at 09:00 Ferrous Sulfate (Ferrous Sulfate (Ec)) 325 mg BID PO Last administered on 08:08; Admin Dose 325 MG; Start 05/20/17 at 09:00 Hydrochlorothiazide (Hydrochlorothiazide) 25 mg DAILY PO Last administered on 08:09; Admin Dose 25 MG; Start 05/20/17 at 09:00 Acetaminophen/ Hydrocodone Bitart ([place] (5/325)) 2 tab Q6H PRN PO PAIN Last administered on 05/20/17 21:36; Admin Dose 1 TAB; Start 05/19/17 at 22:30 Ondansetron HCl (Zofran Tab) 4 mg Q8H PRN PO NAUSEA AND/OR VOMITING; Start 05/19 at 22:30 Pantoprazole (Protonix Tab) 40 mg DAILY@06 PO Last administered on 05/22/17 06: 21; Admin Dose 40 MG; Start 05/20/17 at 06:00 Miscellaneous Information 1 ea NOTE XX ; Start 05/19/17 at 23:30 Glucose (Glutose) 15 gm Q15M PRN PO DECREASED GLUCOSE; Start 05/19/17 at 23:30 Glucose (Glutose) 22.5 gm Q15M PRN PO DECREASED GLUCOSE; Start 05/19/17 at 23:30 Dextrose (D50w Syringe) 25 ml Q15M PRN IV DECREASED GLUCOSE; Start 05/19/17 at 23:30 Dextrose (D50w Syringe) 50 ml Q15M PRN IV DECREASED GLUCOSE; Start 05/19/17 at 23:30 Glucagon (Glucagen) 1 mg Q15M PRN IM DECREASED GLUCOSE; Start 05/19/17 at 23:30 Glucose (Glutose) 15 gm Q15M PRN BUCCAL DECREASED GLUCOSE; Start 05/19/17 at 23: 30 Diagnostic Test (Pha) (Accu-Chek) 1 ea 02 XX Last administered on 05/22/17 02: 30; Admin Dose 1 EA; Start 05/21/17 at 02:00 Acetaminophen (Tylenol Tab) 650 mg Q6H PRN PO PAIN AND OR ELEVATED TEMP Last administered on 05/21/17 22:44; Admin Dose 650 MG; Start 05/21/17 at 08:00 Insulin Glargine (Lantus) 20 unit DAILY@20 SC Last administered on 05/21/17 21: 20; Admin Dose 20 UNIT; Start 05/21/17 at 20:00 THAI GONZALEZ May 22, 2017 14:12
--- NOTE | 2017-05-22 14:43 | PN ---
Date/Time of Note Date/Time of Note DATE: 05/22/17 TIME: 14:41 Assessment/Plan Lines/Catheters IV Catheter Type (from Nrs): Saline Lock Urinary Cath still in place: No Assessment/Plan Assessment/Plan 1- c/o head pain- None at present - CT brain with no contrast- No intracranial hemorrhage or acute intracranial abnormality. 1) chest pain- none at present - myocardial infarction ruled out by enzymes - cardiology consult for further evaluation- Dr Lowry notified today 2) left arm pain and swelling - r/o dVT- negative 3) diabetes - monitor blood sugar 4) hypertension - continue medications at bed side- translated, - all Qs ANSWERED. dw staff Subjective 24 Hr Interval Summary Respiratory: no complaints Cardiovascular: no complaints Gastrointestinal: no complaints Genitourinary: no complaints Musculoskeletal: no complaints Neurologic: no complaints Exam/Review of Systems Vital Signs Vitals Vital Signs Date Time Temp Pulse Resp B/P Pulse Ox O2 Delivery O2 Flow Rate FiO2 05/22/17 12:00 69 05/22/17 11:37 98.1 16 116/66 98 Room Air 05/19/17 20:45 2.0 Intake and Output 05/21/17 05/21/17 05/22/17 15:00 23:00 07:00 Intake Total 800 ml 250 ml Output Total 2 ml Balance 800 ml 248 ml Exam Constitutional: alert, oriented, well developed Respiratory: clear to auscultation, diminished breath sounds Cardiovascular: regular rate and rhythm Gastrointestinal: non-tender, soft Musculoskeletal: nl extremities to inspection Extremities: normal pulses 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, nl speech Skin: nl turgor Results Result Diagram: 05/22/1736 05/22/17 0736 Results 24 hrs Laboratory Tests Test 05/21/17 17:32 05/21/17 21:10 05/22/17 02:33 05/22/17 07:31 Bedside Glucose 113 204 197 172 Test 05/22/17 07:36 05/22/17 11:33 White Blood Count 6.4 Red Blood Count 4.58 L Hemoglobin 13.4 L Hematocrit 41.4 L Mean Corpuscular Volume 90.4 Mean Corpuscular Hemoglobin 29.3 Mean Corpuscular Hemoglobin Concent 32.4 Red Cell Distribution Width 12.3 Platelet Count 143 Mean Platelet Volume 12.0 H Neutrophils % 58.9 Lymphocytes % 30.7 Monocytes % 7.8 Eosinophils % 1.7 Basophils % 0.6 Nucleated Red Blood Cells % 0.0 Neutrophils # (Manual) 3.8 Lymphocytes # 2.0 Monocytes # 0.5 Eosinophils # 0.1 Basophils # 0.0 Nucleated Red Blood Cells # 0.0 Sodium Level 136 Potassium Level 3.8 Chloride Level 101 Carbon Dioxide Level 27 Anion Gap 12 Blood Urea Nitrogen 19 Creatinine 0.76 Glucose Level 191 Hemoglobin A1c 12.0 H Calcium Level 9.3 Bedside Glucose 221 H Medications Medications Current Medications Ondansetron HCl (Zofran Inj) 4 mg Q6H PRN IV NAUSEA AND/OR VOMITING; Start 05/19 at 22:30 Aspirin (Aspirin) 81 mg DAILY PO Last administered on 05/22/17 08:08; Admin Dose 81 MG; Start 05/20/17 at 09:00 Morphine Sulfate (morphine) 2 mg Q4H PRN IV PAIN LEVEL 7-10; Start 05/19/17 at 22:30 Enoxaparin Sodium (Lovenox) 30 mg DAILY SC Last administered on 05/22/17 08:56 ; Admin Dose 30 MG; Start 05/20/17 at 09:00 Diagnostic Test (Pha) (Accu-Chek) 1 ea 02 XX Last administered on 05/22/17 02: 30; Admin Dose 1 EA; Start 05/20/17 at 02:00 Atorvastatin Calcium (Lipitor) 40 mg HS PO Last administered on 05/21/17 21:12 ; Admin Dose 40 MG; Start 05/20/17 at 21:00 Carvedilol (Coreg) 6.25 mg BID PO Last administered on 05/22/17 08:08; Admin Dose 6.25 MG; Start 05/20/17 at 09:00 Ergocalciferol (Drisdol) 50,000 unit Q7D PO Last administered on 05/20/17 10:05 ; Admin Dose 50,000 UNIT; Start 05/20/17 at 09:00 Ferrous Sulfate (Ferrous Sulfate (Ec)) 325 mg BID PO Last administered on 08:08; Admin Dose 325 MG; Start 05/20/17 at 09:00 Hydrochlorothiazide (Hydrochlorothiazide) 25 mg DAILY PO Last administered on 08:09; Admin Dose 25 MG; Start 05/20/17 at 09:00 Acetaminophen/ Hydrocodone Bitart ([place] (5/325)) 2 tab Q6H PRN PO PAIN Last administered on 05/20/17 21:36; Admin Dose 1 TAB; Start 05/19/17 at 22:30 Ondansetron HCl (Zofran Tab) 4 mg Q8H PRN PO NAUSEA AND/OR VOMITING; Start 05/19 at 22:30 Pantoprazole (Protonix Tab) 40 mg DAILY@06 PO Last administered on 05/22/17 06: 21; Admin Dose 40 MG; Start 05/20/17 at 06:00 Miscellaneous Information 1 ea NOTE XX ; Start 05/19/17 at 23:30 Glucose (Glutose) 15 gm Q15M PRN PO DECREASED GLUCOSE; Start 05/19/17 at 23:30 Glucose (Glutose) 22.5 gm Q15M PRN PO DECREASED GLUCOSE; Start 05/19/17 at 23:30 Dextrose (D50w Syringe) 25 ml Q15M PRN IV DECREASED GLUCOSE; Start 05/19/17 at 23:30 Dextrose (D50w Syringe) 50 ml Q15M PRN IV DECREASED GLUCOSE; Start 05/19/17 at 23:30 Glucagon (Glucagen) 1 mg Q15M PRN IM DECREASED GLUCOSE; Start 05/19/17 at 23:30 Glucose (Glutose) 15 gm Q15M PRN BUCCAL DECREASED GLUCOSE; Start 05/19/17 at 23: 30 Diagnostic Test (Pha) (Accu-Chek) 1 ea 02 XX Last administered on 05/22/17 02: 30; Admin Dose 1 EA; Start 05/21/17 at 02:00 Acetaminophen (Tylenol Tab) 650 mg Q6H PRN PO PAIN AND OR ELEVATED TEMP Last administered on 05/21/17 22:44; Admin Dose 650 MG; Start 05/21/17 at 08:00 Insulin Glargine (Lantus) 20 unit DAILY@20 SC Last administered on 05/21/17 21: 20; Admin Dose 20 UNIT; Start 05/21/17 at 20:00 LIAM CARRILLO May 22, 2017 14:43
[2017-05-22] MEDS: ATORVASTATIN 40 MG TAB PO SCH (21:45)
[2017-05-22] MEDS: INSULIN GLARGINE [LANtus] 3 ML PEN SC SCH (21:54)
[2017-05-23] VITALS (10 sets, daily range): BP systolic 114–138; BP diastolic 70–81; PULSE 69–80; RESP 19–21
[2017-05-23] MEDS: ACCU-CHEK XX SCH ×2 (02:12)
[2017-05-23] MEDS: PANTOPRAZOLE (EC) 40 MG TAB PO SCH (06:00)
[2017-05-23] MEDS: metFORMIN 500 MG TAB PO SCH ×2 (07:55→17:28)
[2017-05-23] MEDS: INSULIN ASPART [NOVOLOG] 3 ML PEN SC SCH ×6 (07:55→17:35)
[2017-05-23 07:59] LABS: BASOPHILS % 0.5 % (0.0-2.0); EOSINOPHILS # 0.1 10^3/ul (0.0-0.5); EOSINOPHILS % 2.1 % (0.0-7.0); HEMATOCRIT 42.4 % (42.0-52.0); HEMOGLOBIN 13.8 g/dl (14.0-18.0); LYMPHOCYTES # 2.1 10^3/ul (0.8-2.9); LYMPHOCYTES % 31.8 % (15.0-51.0); MEAN CORPUSCULAR HEMOGLOBIN 29.1 pg (29.0-33.0); MEAN CORPUSCULAR HGB CONC 32.5 g/dl (32.0-37.0); MEAN CORPUSCULAR VOLUME 89.3 fl (82.0-101.0); MEAN PLATELET VOLUME 11.8 fl (7.4-10.4); MONOCYTE # 0.5 10^3/ul (0.3-0.9); MONOCYTES % 7.9 % (0.0-11.0); NEUTROPHILS % 57.2 % (39.0-77.0); PLATELET COUNT 150 10^3/UL (140-415); RED BLOOD COUNT 4.75 10^6/ul (4.70-6.10); RED CELL DISTRIBUTION WIDTH 12.2 % (11.5-14.5); WHITE BLOOD COUNT 6.6 10^3/ul (4.8-10.8)
[2017-05-23] MEDS: ASPIRIN 81 MG TAB PO SCH (08:26)
[2017-05-23] MEDS: HYDROCHLOROTHIAZIDE 25 MG TAB PO SCH (08:26)
[2017-05-23] MEDS: FERROUS SULFATE (EC) 325 MG TAB PO SCH (08:26)
[2017-05-23 08:37] LABS: CALCIUM 9.3 mg/dl (8.4-10.2); CREATININE 0.81 mg/dl (0.61-1.24); POTASSIUM 3.6 mmol/L (3.5-5.1)
[2017-05-23] MEDS: ENOXAPARIN 30 MG/0.3 ML SYG SC SCH (08:38)
[2017-05-23] MEDS ORDERED: REGADENOSON 0.4 MG/5 ML SYG ONE (09:12)
--- NOTE | 2017-05-23 10:21 | CONS ---
Date/Time of Note Date/Time of Note DATE: 05/23/17 TIME: 10:19 Assessment/Plan Assessment/Plan Chief Complaint/Hosp Course IMP: 1.CHest pain-negative trop x 3 2.Cad s/p cab g- 06/2016 x 3 vessels 3.HTN 4.HL 5. DM Recc: -Tele -serial ecg's -Continue statin -Continue asa -Continue coreg -lexiscan today -add low dose oral nitrates Problems: Consultation Date/Type/Reason Admit Date/Time May 19, 2017 at 22:22 Initial Consult Date 05/21/2017 Type of Consultation: cardiology Reason for Consultation chest pain Referring Provider: ZAKIYA BOURGEOIS MD Exam/Review of Systems Vital Signs Vitals Vital Signs Date Time Temp Pulse Resp B/P Pulse Ox O2 Delivery O2 Flow Rate FiO2 05/23/17 08:30 76 05/23/17 07:52 98.3 21 114/79 94 05/22/17 11:37 Room Air 05/19/17 20:45 2.0 Intake and Output 05/22/17 05/22/17 05/23/17 15:00 23:00 07:00 Intake Total 1800 ml Output Total 2 ml Balance 1798 ml Exam Review of Systems: CONSTITUTIONAL: No fevers, chills. PULMONARY: No sob CARDIOVASCULAR: No current chest pain GASTROINTESTINAL: No nausea/vomiting. GENITOURINARY: No hematuria/dysuria. MUSCULOSKELETAL: No myagias/arthalgias. PSYCHIATRIC: The patient denies depression. NEUROLOGIC: No weakness Constitutional: alert, oriented Psych: no complaints Head: normocephalic Neck: jvd (8-9 cm water), supple Respiratory: clear to auscultation Cardiovascular: regular rate and rhythm Gastrointestinal: non-tender, soft Musculoskeletal: muscle tone (normal) Extremities: edema (none) Neurological: other (No focal deficits) Results Result Diagram: 05/23/17 0710 05/23/17 0710 Results 24 hrs Laboratory Tests Test 05/22/17 11:33 05/22/17 17:31 05/22/17 21:48 05/23/17 01:41 Bedside Glucose 221 H 164 210 150 Test 05/23/17 07:10 05/23/17 08:17 White Blood Count 6.6 Red Blood Count 4.75 Hemoglobin 13.8 L Hematocrit 42.4 Mean Corpuscular Volume 89.3 Mean Corpuscular Hemoglobin 29.1 Mean Corpuscular Hemoglobin Concent 32.5 Red Cell Distribution Width 12.2 Platelet Count 150 Mean Platelet Volume 11.8 H Neutrophils % 57.2 Lymphocytes % 31.8 Monocytes % 7.9 Eosinophils % 2.1 Basophils % 0.5 Nucleated Red Blood Cells % 0.0 Neutrophils # (Manual) 3.8 Lymphocytes # 2.1 Monocytes # 0.5 Eosinophils # 0.1 Basophils # 0.0 Nucleated Red Blood Cells # 0.0 Sodium Level 139 Potassium Level 3.6 Chloride Level 99 Carbon Dioxide Level 29 Anion Gap 15 Blood Urea Nitrogen 16 Creatinine 0.81 Glucose Level 152 Calcium Level 9.3 Bedside Glucose 167 Medications Medications Current Medications Ondansetron HCl (Zofran Inj) 4 mg Q6H PRN IV NAUSEA AND/OR VOMITING; Start 05/19 at 22:30 Aspirin (Aspirin) 81 mg DAILY PO Last administered on 05/23/17 08:26; Admin Dose 81 MG; Start 05/20/17 at 09:00 Morphine Sulfate (morphine) 2 mg Q4H PRN IV PAIN LEVEL 7-10; Start 05/19/17 at 22:30 Enoxaparin Sodium (Lovenox) 30 mg DAILY SC Last administered on 05/23/17 08:38 ; Admin Dose 30 MG; Start 05/20/17 at 09:00 Diagnostic Test (Pha) (Accu-Chek) 1 ea 02 XX Last administered on 05/23/17 02: 12; Admin Dose 1 EA; Start 05/20/17 at 02:00 Atorvastatin Calcium (Lipitor) 40 mg HS PO Last administered on 05/22/17 21:45 ; Admin Dose 40 MG; Start 05/20/17 at 21:00 Carvedilol (Coreg) 6.25 mg BID PO Last administered on 05/23/17 08:26; Admin Dose 6.25 MG; Start 05/20/17 at 09:00 Ergocalciferol (Drisdol) 50,000 unit Q7D PO Last administered on 05/20/17 10:05 ; Admin Dose 50,000 UNIT; Start 05/20/17 at 09:00 Ferrous Sulfate (Ferrous Sulfate (Ec)) 325 mg BID PO Last administered on 08:26; Admin Dose 325 MG; Start 05/20/17 at 09:00 Hydrochlorothiazide (Hydrochlorothiazide) 25 mg DAILY PO Last administered on 08:26; Admin Dose 25 MG; Start 05/20/17 at 09:00 Acetaminophen/ Hydrocodone Bitart ([place] (5/325)) 2 tab Q6H PRN PO PAIN Last administered on 05/20/17 21:36; Admin Dose 1 TAB; Start 05/19/17 at 22:30 Ondansetron HCl (Zofran Tab) 4 mg Q8H PRN PO NAUSEA AND/OR VOMITING; Start 05/19 at 22:30 Pantoprazole (Protonix Tab) 40 mg DAILY@06 PO Last administered on 05/22/17 06: 21; Admin Dose 40 MG; Start 05/20/17 at 06:00 Miscellaneous Information 1 ea NOTE XX ; Start 05/19/17 at 23:30 Glucose (Glutose) 15 gm Q15M PRN PO DECREASED GLUCOSE; Start 05/19/17 at 23:30 Glucose (Glutose) 22.5 gm Q15M PRN PO DECREASED GLUCOSE; Start 05/19/17 at 23:30 Dextrose (D50w Syringe) 25 ml Q15M PRN IV DECREASED GLUCOSE; Start 05/19/17 at 23:30 Dextrose (D50w Syringe) 50 ml Q15M PRN IV DECREASED GLUCOSE; Start 05/19/17 at 23:30 Glucagon (Glucagen) 1 mg Q15M PRN IM DECREASED GLUCOSE; Start 05/19/17 at 23:30 Glucose (Glutose) 15 gm Q15M PRN BUCCAL DECREASED GLUCOSE; Start 05/19/17 at 23: 30 Diagnostic Test (Pha) (Accu-Chek) 1 ea 02 XX Last administered on 05/23/17 02: 12; Admin Dose 1 EA; Start 05/21/17 at 02:00 Acetaminophen (Tylenol Tab) 650 mg Q6H PRN PO PAIN AND OR ELEVATED TEMP Last administered on 05/21/17 22:44; Admin Dose 650 MG; Start 05/21/17 at 08:00 Insulin Glargine (Lantus) 20 unit DAILY@20 SC Last administered on 05/22/17 21: 54; Admin Dose 20 UNIT; Start 05/21/17 at 20:00 THAI GONZALEZ 7, 2017 10:21
--- NOTE | 2017-05-23 11:28 | CARRPT ---
DATE OF PROCEDURE: 05/23/2017 TYPE OF PROCEDURE: Lexiscan Cardiolite stress test, electrocardiogram portion. INDICATION: Chest pain, assess for ischemia. BASELINE VITAL SIGNS AND ELECTROCARDIOGRAM: Pulse 61, blood pressure 131/81. Electrocardiogram reveals normal sinus rhythm with a left bundle branch block, rate of 61, secondary to repolarization abnormalities. PROCEDURE: Patient underwent standard Lexiscan infusion protocol for 10 seconds followed by radiolabeled tracer. Patient's test was stopped due to completion of protocol. Maximal achieved blood pressure during the test 121/67. Maximum heart rate during test 90. ELECTROCARDIOGRAM FINDINGS: The patient did not develop any new Lexiscan-induced ST-T wave change from baseline abnormalities. No documented PVCs. SYMPTOMS: The patient has no complaints, chest pain, mild shortness of breath during stress test, resolved during recovery. IMPRESSION: 1. No Lexiscan-induced ST-T wave changes from baseline abnormalities that are diagnostic for ischemia. 2. No complaints of chest pain during stress testing. Positive shortness of breath resolved during recovery. 3. No positive no premature ventricular contractions during stress test. 3.1. Report of nuclear images to follow in separate dictation. Dictated By: Chad León MD /cj/bernardo /Document#: [id number] CC: Janes Jaramillo MD;*[facility]*
--- NOTE | 2017-05-23 13:03 | RADRPT ---
PROCEDURE: Lexiscan myocardial perfusion study CLINICAL INDICATION: 56 -year-old patient with coronary artery disease, status post CABG, complain ing of chest pain. TECHNIQUE: Lexiscan 0.4 mg intravenously separate acquisition gated myocardial perfusion SPECT usi ng Tc 99m Myoview 31.4 mCi intravenously at stress and Tc-99m Myoview, 10.2 mCi intravenously at res t was performed using the rest/stress sequence. Poststress Myoview SPECT images were obtained in th e supine position. COMPARISON: July 09, 2016. FINDINGS: Perfusion images reveal a small size mild to moderate in degree predominantly nonreversible perfusio n abnormality in the distal anteroseptal , distal anterior and distal inferior davis Lexiscan post stress gated SPECT images demonstrate no wall motion abnormalities. IMPRESSION: 1. The type and distribution of the scintigraphic abnormalities are most consistent with a small si ze predominantly nonreversible perfusion defect involving the distal anteroseptal, distal anterior a nd distal inferior davis. 2. Mild to moderate hypokinesis of the left ventricle. 3. The left ventricle ejection fraction at stress is 32% (prior EF was 47%). A call report was made to Dr. León at 01:00 p.m. on May 23, 2017 RPTAT: HH .Tanisha Rucker MD, MD Date Time Electronically viewed and signed by .Tanisha Rucker MD, on 05/23/2017 13:02 .L/
--- NOTE | 2017-05-23 17:55 | PDOCDIS ---
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 Patient and his verbalized understanding dc instructions. Dw Dr Jaramillo/staff LIAM CARRILLO May 23, 2017 17:55
[2017-05-23] MEDS ORDERED: ISOS30TA5 PO (17:57)
[2017-05-23] MEDS ORDERED: BENA5TAB2 PO (17:57)
[2017-05-24] MEDS ORDERED: ISOSORBIDE MONONITRATE(SR)30 MG TAB PO SCH (09:00)
== END 2017-05-23 18:45 | disposition home or self-care (01) | DRG 313 ==
LOC: E/R 20:20 → TEL 22:22
PROVIDERS: ADMIT Internal Medicine; ATTEND Internal Medicine
DX: R07.9 Chest pain, unspecified (principal); I25.10 Atherosclerotic heart disease of native coronary artery without angina pectoris; I10 Essential (primary) hypertension; E11.9 Type 2 diabetes mellitus without complications; Z79.4 Long term (current) use of insulin; Z95.1 Presence of aortocoronary bypass graft; F41.9 Anxiety disorder, unspecified; E66.9 Obesity, unspecified; Z68.30 Body mass index [BMI] 30.0-30.9, adult; E78.5 Hyperlipidemia, unspecified; I44.7 Left bundle-branch block, unspecified; M79.602 Pain in left arm; M79.89 Other specified soft tissue disorders; R51 Headache
CPT/HCPCS: 36415; 70450; 71010; 78452; 80048; 80053; 80061; 82550; 82553; 82962; 83036; 84484; 85025; 85610; 85730; 93005; 93017; 93971; 96374; 96375; A9500; A9505; J1650; J1815; J2270; J2405; J2785; J7030

== ENCOUNTER 2017-07-10 00:04 | Inpatient (IN) | payer BC ==
[2017-07-10] VITALS (10 sets, daily range): BP systolic 102–123; BP diastolic 58–73; PULSE 65–81; RESP 16–18; TEMP 98.3; Ht 165.1 cm; Wt 72.7 kg
[~2017-07-10] VITALS: Ht 165.1 cm; Wt 72.7 kg
[~2017-07-10 00:04] MED LIST changes: +BENA5TAB2 PO; -HYD25 PO; +HYDR25TA6 PO; +ISOS30TA5 PO
[2017-07-10] MEDS ORDERED: morphine 4 MG/ML VIAL IV STA (00:27)
[2017-07-10] MEDS ORDERED: ONDANSETRON 4 MG INJ IV STA (00:27)
[2017-07-10 01:29] LABS: BASOPHIL # 0.1 10^3/ul (0.0-0.1); BASOPHILS % 0.5 % (0.0-2.0); EOSINOPHILS # 0.2 10^3/ul (0.0-0.5); EOSINOPHILS % 1.8 % (0.0-7.0); HEMATOCRIT 38.2 % (42.0-52.0); HEMOGLOBIN 13.2 g/dl (14.0-18.0); LYMPHOCYTES # 3.4 10^3/ul (0.8-2.9); LYMPHOCYTES % 36.8 % (15.0-51.0); MEAN CORPUSCULAR HEMOGLOBIN 30.1 pg (29.0-33.0); MEAN CORPUSCULAR HGB CONC 34.6 g/dl (32.0-37.0); MEAN PLATELET VOLUME 12.7 fl (7.4-10.4); MONOCYTE # 0.6 10^3/ul (0.3-0.9); MONOCYTES % 6.2 % (0.0-11.0); NEUTROPHILS % 54.4 % (39.0-77.0); PLATELET COUNT 168 10^3/UL (140-415); RED BLOOD COUNT 4.39 10^6/ul (4.70-6.10); RED CELL DISTRIBUTION WIDTH 12.5 % (11.5-14.5); WHITE BLOOD COUNT 9.1 10^3/ul (4.8-10.8)
[2017-07-10 01:51] LABS: ALANINE AMINOTRANSFERASE 52 IU/L (13-69); ALBUMIN 4.4 g/dl (3.3-4.9); ALBUMIN/GLOBULIN RATIO 1.46; ALKALINE PHOSPHATASE 64 IU/L (42-121); ANION GAP 16 (8-16); ASPARTATE AMINO TRANSFERASE 25 IU/L (15-46); BILIRUBIN,INDIRECT 0.2 mg/dl (0-1.1); BILIRUBIN,TOTAL 0.2 mg/dl (0.2-1.3); BLOOD UREA NITROGEN 24 mg/dl (7-20); CALCIUM 10.1 mg/dl (8.4-10.2); CARBON DIOXIDE 28 mmol/L (21-31); CHLORIDE 97 mmol/L (97-110); CREATININE 0.89 mg/dl (0.61-1.24); GLUCOSE 249 mg/dl (70-220); POTASSIUM 3.3 mmol/L (3.5-5.1); SODIUM 138 mmol/L (135-144); TOTAL PROTEIN 7.4 g/dl (6.1-8.1)
[2017-07-10 02:02] LABS: B-TYPE NATRIURETIC PEPTIDE 225 PG/ML (0-125)
[2017-07-10 02:04] LABS: TROPONIN-I < 0.012 ng/ml (0.00-0.12)
[2017-07-10] MEDS ORDERED: NITROGLYCERIN 2% 1 GM OINT PKT TD ONE (02:30)
[2017-07-10] MEDS ORDERED: ACETAMINOPHEN 325 MG TAB PO ONE (02:30)
--- NOTE | 2017-07-10 02:48 | RADRPT ---
PROCEDURE: XR Chest. CLINICAL INDICATION: Chest pain. TECHNIQUE: Single frontal view of the chest. COMPARISON: 09/13/2016. FINDINGS: The cardiomediastinal silhouette is within normal limits. Improved lung inflation over interval. Pre viously seen left lung base air space disease is substantially resolved. Mild persistent left lung b ase atelectasis versus airspace disease.. Mild right lung base atelectasis. The lungs are clear. No signs of pleural fluid or pneumothorax are seen. The osseous structures and soft tissues are unremar kable. IMPRESSION: Mild left lung base atelectasis versus airspace disease, although airspace disease seen on prior exa mination is substantially resolved over interval. RPTAT: [facility] Physician Jaylyn Date Time Electronically viewed and signed by Physician Jaylyn on 07/10/2017 02:48 RS/
--- NOTE | 2017-07-10 03:16 | ERD ---
ER Documentation Chief Complaint Chief Complaint CP radiating to his L shoulder/arm x 8 hrs,hx CVA HPI This is a 56-year-old coming with chest pain rating to his left shoulder left arm for 8 hours. Pain is mild to moderate in intensity. Mild associated shortness of breath. No nausea no vomiting no fevers no chills. No palpitations. Pain is similar to previous pain he had when he ended up having a bypass surgery. Bypass was 2 years ago. History of CVA as well. ROS All systems reviewed and are negative except as per history of present illness. Medications Home Meds Active Scripts Benazepril Hcl* (Benazepril Hcl*) 5 Mg Tablet, 5 MG PO DAILY, #30 TAB Prov:LIAM CARRILLO 05/23/17 Isosorbide Mononitrate* (Isosorbide Mononitrate*) 30 Mg Tab.er.24h, 30 MG PO DAILY for 30 Days Prov:LIAM CARRILLO 05/23/17 Ondansetron Hcl* (Zofran*) 4 Mg Tablet, 4 MG PO Q8H Y for NAUSEA AND/OR VOMITING , #20 TAB 0 Refills Prov:TABATHA HAWKINS 09/13/16 Hydrocodone/Acetaminophen ([place] 5-325 Tablet) 1 Each Tablet, 2 TAB PO Q6H Y for PAIN, #20 TAB 0 Refills Prov:TABATHA HAWKINS 09/13/16 Pantoprazole* (Pantoprazole*) 40 Mg Tablet.dr, 40 MG PO DAILY@06, #60 Prov:ERICA SARKAR MD 07/23/16 Hydrochlorothiazide* (Hydrochlorothiazide*) 25 Mg Tab, 25 MG PO DAILY, #90 TAB Prov:ERICA SARKAR MD 07/23/16 Carvedilol* (Carvedilol*) 6.25 Mg Tablet, 6.25 MG PO BID, #180 TAB Prov:REICA SARKAR MD 07/23/16 Atorvastatin* (Atorvastatin*) 40 Mg Tablet, 40 MG PO HS, #90 TAB Prov:ERICA SARKAR MD 07/23/16 Aspirin (Aspirin) 81 Mg Chew, 81 MG PO DAILY, #100 TAB Prov:ERICA SARKAR MD 07/23/16 Reported Medications Insulin Degludec (Tresiba Flextouch U-100) 100 Unit/1 Ml Insuln.pen, 30 UNIT SQ QHS 09/13/16 Ergocalciferol* (Drisdol* (Vitamin D2)) 50,000 Unit Capsule, 15903 UNIT PO Q7D, CAP 09/13/16 Metformin Hcl* (Metformin Hcl*) 500 Mg Tablet, 500 MG PO WITH BREAKFAST DINNE, # 60 TAB 09/13/16 Ferrous Sulfate* (Ferrous Sulfate*) 325 Mg Tabec, 325 MG PO BID, TAB 09/13/16 Allergies Allergies: Coded Allergies: No Known Allergies (Verified Allergy, Mild, 09/13/16) PMhx/Soc History of Surgery: Yes (CABG 2015) Anesthesia Reaction: No Hx Neurological Disorder: No Hx Respiratory Disorders: No Hx Cardiac Disorders: Yes (HTN,DYSLIPIDIMIA,CAD) Hx Psychiatric Problems: No Hx Miscellaneous Medical Probl: No Hx Alcohol Use: No Hx Substance Use: No Hx Tobacco Use: No Smoking Status: Never smoker Physical Exam Vitals Vital Signs Date Time Temp Pulse Resp B/P Pulse Ox O2 Delivery O2 Flow Rate FiO2 07/10/17 01:02 98.3 70 24 101/65 100 Room Air 07/10/17 00:10 98.3 72 20 110/69 100 Physical Exam Const: [] Head: Atraumatic Eyes: Normal Conjunctiva ENT: Normal External Ears, Nose and Mouth. Neck: Full range of motion..~ No meningismus. Resp: Clear to auscultation bilaterally Cardio: Regular rate and rhythm, no murmurs Abd: Soft, non tender, non distended. Normal bowel sounds Skin: No petechiae or rashes Back: No midline or flank tenderness Ext: No cyanosis, or edema Neur: Awake and alert Psych: Normal Mood and Affect Result Diagram: 07/10/17 0050 07/10/17 0050 Results 24 hrs Laboratory Tests Test 07/10/17 00:50 White Blood Count 9.110^3/ul Red Blood Count 4.3910^6/ul Hemoglobin 13.2g/dl Hematocrit 38.2% Mean Corpuscular Volume 87.0fl Mean Corpuscular Hemoglobin 30.1pg Mean Corpuscular Hemoglobin Concent 34.6g/dl Red Cell Distribution Width 12.5% Platelet Count 88504^3/UL Mean Platelet Volume 12.7fl Neutrophils % 54.4% Lymphocytes % 36.8% Monocytes % 6.2% Eosinophils % 1.8% Basophils % 0.5% Nucleated Red Blood Cells % 0.0/100WBC Neutrophils # 5.010^3/ul Lymphocytes # 3.410^3/ul Monocytes # 0.610^3/ul Eosinophils # 0.210^3/ul Basophils # 0.110^3/ul Nucleated Red Blood Cells # 0.010^3/ul Sodium Level 138mmol/L Potassium Level 3.3mmol/L Chloride Level 97mmol/L Carbon Dioxide Level 28mmol/L Anion Gap 16 Blood Urea Nitrogen 24mg/dl Creatinine 0.89mg/dl Glucose Level 249mg/dl Calcium Level 10.1mg/dl Total Bilirubin 0.2mg/dl Direct Bilirubin 0.00mg/dl Indirect Bilirubin 0.2mg/dl Aspartate Amino Transf (AST/SGOT) 25IU/L Alanine Aminotransferase (ALT/SGPT) 52IU/L Alkaline Phosphatase 64IU/L Troponin I < 0.012ng/ml B-Type Natriuretic Peptide 225PG/ML Total Protein 7.4g/dl Albumin 4.4g/dl Globulin 3.00g/dl Albumin/Globulin Ratio 1.46 Current Medications Medications (Trade) Dose Ordered Sig/Erika Route PRN Reason Start Time Stop Time Status Last Admin Dose Admin Morphine Sulfate (morphine) 4 mg ONCE STAT IV 07/10/17 00:27 07/10/17 00:28 DC Ondansetron HCl (Zofran Inj) 4 mg ONCE STAT IV 07/10/17 00:27 07/10/17 00:28 DC Nitroglycerin (Nitroglycerin 2% Oint) 0.5 inch ONCE ONCE TD 07/10/17 02:30 07/10/17 02:31 DC 07/10/17 02:15 Acetaminophen (Tylenol Tab) 650 mg ONCE ONCE PO 07/10/17 02:30 07/10/17 02:31 DC 07/10/17 02:11 Procedures/MDM EKG: Rate/Rhythm: [Normal Sinus Rhythm] QRS, ST, T-waves: [No changes consistent w/ acute ischemia] Impression: [No evidence of ischemia or arrhythmia] Chest X-ray 1V Interpreted by me: Soft Tissue: No acute abnormalities Bones: No acute abnormalities Mediastinum/Cardiac Silhouette/Lungs: [No acute abnormalities] Patient's symptoms are concerning for cardiac cause will require inpatient workup and continuous monitoring. Further w/u for ischemia, arrhythmia, PE or dissection will be deferred to the inpatient team. Accepting Care Team: Current data and ongoing care discussed. Time: 1230 Primary Provider: Dr. May Consulting: [XOXOXO] Outstanding Data: none Departure Diagnosis: Primary Impression: Chest pain Chest pain type: unspecified Qualified Code: R07.9 - Chest pain, unspecified type Condition: Serious ROSA JEAN BAPTISTE Jul 10, 2017 03:16
[2017-07-10] MEDS ORDERED: NIT4 SL (04:24)
[2017-07-10] MEDS ORDERED: FURO20TA3 PO (04:24)
[2017-07-10] MEDS ORDERED: morphine 2 MG INJ IV PRN (04:30)
[2017-07-10] MEDS ORDERED: ONDANSETRON 4 MG INJ IV PRN (04:30)
[2017-07-10 07:47] LABS: BASOPHIL # 0.1 10^3/ul (0.0-0.1); BASOPHILS % 0.6 % (0.0-2.0); EOSINOPHILS # 0.2 10^3/ul (0.0-0.5); EOSINOPHILS % 2.3 % (0.0-7.0); HEMATOCRIT 37.6 % (42.0-52.0); HEMOGLOBIN 12.8 g/dl (14.0-18.0); LYMPHOCYTES # 3.1 10^3/ul (0.8-2.9); LYMPHOCYTES % 38.5 % (15.0-51.0); MEAN CORPUSCULAR VOLUME 88.3 fl (82.0-101.0); MEAN PLATELET VOLUME 12.4 fl (7.4-10.4); MONOCYTE # 0.7 10^3/ul (0.3-0.9); MONOCYTES % 8.1 % (0.0-11.0); NEUTROPHIL # 4.1 10^3/ul (1.6-7.5); NEUTROPHILS % 50.1 % (39.0-77.0); PLATELET COUNT 142 10^3/UL (140-415); RED BLOOD COUNT 4.26 10^6/ul (4.70-6.10); RED CELL DISTRIBUTION WIDTH 12.6 % (11.5-14.5); WHITE BLOOD COUNT 8.1 10^3/ul (4.8-10.8)
[2017-07-10 08:09] LABS: ALBUMIN 4.6 g/dl (3.3-4.9); ALBUMIN/GLOBULIN RATIO 1.64; BILIRUBIN,INDIRECT 0.4 mg/dl (0-1.1); BILIRUBIN,TOTAL 0.4 mg/dl (0.2-1.3); CREATININE 0.94 mg/dl (0.61-1.24); POTASSIUM 3.1 mmol/L (3.5-5.1); TOTAL PROTEIN 7.4 g/dl (6.1-8.1)
[2017-07-10 08:22] LABS: TROPONIN-I 0.017 ng/ml (0.00-0.12)
[2017-07-10 08:26] LABS: CK-MB 0.51 ng/ml (0.0-2.4)
[2017-07-10 14:11] LABS: CREATINE KINASE 80 IU/L (23-200)
[2017-07-10 14:34] LABS: CK-MB 0.35 ng/ml (0.0-2.4); TROPONIN-I < 0.012 ng/ml (0.00-0.12)
[2017-07-10] MEDS ORDERED: ISOSORBIDE MONONITRATE(SR)30 MG TAB PO SCH (15:30)
[2017-07-10] MEDS ORDERED: GLUCOSE GEL 15 GRAM TUBE BUCCAL PRN (16:00)
[2017-07-10] MEDS ORDERED: GLUCAGON 1 MG INJ IM PRN (16:00)
[2017-07-10] MEDS ORDERED: GLUCOSE GEL 15 GRAM TUBE PO PRN ×2 (16:00)
[2017-07-10] MEDS ORDERED: DEXTROSE 50% 50 ML SYRINGE IV PRN ×2 (16:00)
[2017-07-10] MEDS ORDERED: [UNRECOGNIZED DRUG - REMARK] XX SCH (16:00)
--- NOTE | 2017-07-10 16:00 | HP ---
Date/Time of Note Date/Time of Note DATE: 07/10/17 TIME: 15:19 Assessment/Plan VTE Prophylaxis VTE Prophylaxis Intervention: SCD's Lines/Catheters IV Catheter Type (from Nrs): Saline Lock Urinary Cath still in place: No Assessment/Plan Assessment/Plan -Chest pain, rule out acute coronary syndrome. Will obtain cardiac enzymes every 8 hours 3 and 12-lead EKG. continue aspirin nitroglycerin and morphine for pain. Dr. León is asked to see patient in cardiology consultation. -Coronary artery disease, status post four-vessel CABG in 2016. 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 Plan of care discussed with Dr. Jaramillo. HPI/ROS Admit Date/Time Admit Date/Time Jul 10, 2017 at 02:03 Hx of Present Illness Patient is 56-year-old gentleman with a history of coronary artery disease status post CABG in 2016, hypertension, systolic dysfunction congestive heart failure with ejection fraction of 30% per last echo, history of stroke with left hemiparesis, patient was able to ambulate at home using a walker. Patient with history of diabetes mellitus type 2 uses insulin at home, anxiety, and obesity. Patient presented to the emergency room with complaints of chest pain with radiation to the neck and the head and left shoulder. Patient also complains of shortness of breath associated with chest pain. Patient denies any fever denies cough denies any nausea vomiting denies diarrhea denies constipation. Patient troponin was found to be negative on admission, chest x- ray is negative for any pneumonia. Patient also noted to have elevated blood sugar. Patient complains of occasional tachycardia however denies any palpitations now. Patient was given nitroglycerin and morphine and admitted for further evaluation and management to telemetry floor. ROS Per HPI PMH/Family/Social Past Medical History Medical History: congestive heart failure, coronary artery disease, diabetes, hypertension Past Surgical History Status post CABG in 2016 Social History Alcohol Use: none Smoking Status: Never smoker Drug Use: none Exam/Review of Systems Vital Signs Vitals Vital Signs Date Time Temp Pulse Resp B/P Pulse Ox O2 Delivery O2 Flow Rate FiO2 07/10/17 12:02 78 07/10/17 11:27 98.0 16 112/58 98 07/10/17 04:00 Room Air Exam Constitutional: alert, oriented Head: normocephalic Neck: supple Respiratory: normal air movement Cardiovascular: nl pulses, regular rate and rhythm Gastrointestinal: non-tender, soft Musculoskeletal: nl extremities to inspection Extremities: normal pulses Neurological: UPHOLSTERED [employer] II-XII intact, other (Left hemiparesis) Skin: nl turgor Labs Result Diagram: 07/10/1765307/10/17653 Medications Medications Current Medications Ondansetron HCl (Zofran Inj) 4 mg Q4H PRN IV NAUSEA AND/OR VOMITING; Start at 04:30 Morphine Sulfate (morphine) 2 mg Q4H PRN IV PAIN LEVEL 8-10 Last administered on 07/10/17t 11:10; Admin Dose 2 MG; Start 07/10/17 at 04:30 OBIE FREEDMAN Jul 10, 2017 15:30
[2017-07-10 17:09] LABS: ALBUMIN/GLOBULIN RATIO 1.29; BILIRUBIN,INDIRECT 0.4 mg/dl (0-1.1); BILIRUBIN,TOTAL 0.4 mg/dl (0.2-1.3); CALCIUM 9.4 mg/dl (8.4-10.2); CREATININE 0.93 mg/dl (0.61-1.24); POTASSIUM 3.7 mmol/L (3.5-5.1); TOTAL PROTEIN 7.1 g/dl (6.1-8.1)
--- NOTE | 2017-07-10 17:15 | RADRPT ---
Echocardiogram Report Patient Name: KEELEY LITTLE Gender: Male Date: 1960 Study Date: 10-Jul-2017 Recovery Agent: Rachael [facility] Location: 5539-A Ref. Physician: SANTO SHARMA Quality: Adequate Procedures: Transthoracic echocardiogram with complete 2D, M-Mode, and doppler examination. Indications: Chest Pain. 2D/M Mode Doppler Measurement Value Normal Ranges Measurement Value Normal Ranges LVIDd 2D 3.7 3.5 - 5.6 cm AV Peak Zohaib 1.0 m/sec LVIDs 2D 2.2 2.1 - 4.1 cm AV Peak PG 4.0 mmHg FS 2D 41.6 % LVOT Peak Zohaib 1.0 m/sec LVPWd 2D 1.2 0.6 - 1.1 cm LVOT Peak PG 4.0 mmHg IVSd 2D 1.3 0.6 - 1.1 cm MV E Peak Zohaib 0.8 m/sec IVS/LVPW 2D 1.1 MV A Peak Zohaib 0.6 m/sec AoR Diam 2D 2.5 2.0 - 3.7 cm MV E/A 1.2 LA/Ao 2D 1 0 - 1 MV Decel Time 176 msec EDV 2D 51.9 cm3 MV E/A 1.2 ESV 2D 10.4 cm3 TR Peak Zohaib 2.0 m/sec LA Dimen 2D 2.8 2.3 - 4.0 cm TR Peak PG 15.0 mmHg RVSP 23.0 mmHg Findings Left Ventricle: Normal left ventricular cavity size. Mild concentric left ventricular hypertrophy. Moderate global left ventricular systolic dysfunction. Ejection fraction is visually estimated at 30 %. Abnormal Diastolic Function. Right Ventricle: Normal right ventricular size. Mild right ventricular systolic dysfunction. Left Atrium: The left atrium is normal in size. Right Atrium: The right atrium is normal in size. Mitral Valve: Mild mitral leaflet calcification. Mild mitral annular calcification. Trace mitral regurgitation. Aortic Valve: No significant aortic stenosis. Aortic cusps appear mildly calcified. Trace aortic valve regurgitation. Tricuspid Valve: Normal appearance of the tricuspid valve. Estimated peak PA systolic pressure 23 mmHg. There is trace tricuspid regurgitation. Pulmonic Valve: Pulmonic valve not well visualized. There is trace pulmonic regurgitation. Pericardium: Normal pericardium with no significant pericardial effusion. Aorta: Normal aortic root. IVC: Dilated IVC with respiratory collapse consistent with elevated right atrial pressure. Conclusions 1.Normal left ventricular cavity size. Mild concentric left ventricular hypertrophy. Moderate global left ventricular systolic dysfunction. Ejection fraction is visually estimated at 30 %. Abnormal Diastolic Function. 2.Normal right ventricular size. Mild right ventricular systolic dysfunction. 3.Mild mitral leaflet calcification. Mild mitral annular calcification. Trace mitral regurgitation. 4.No significant aortic stenosis. Aortic cusps appear mildly calcified. Trace aortic valve regurgitation. 5.Normal appearance of the tricuspid valve. Estimated peak PA systolic pressure 23 mmHg. There is trace tricuspid regurgitation. 6.Pulmonic valve not well visualized. There is trace pulmonic regurgitation. Electronically Signed By: Chad León 10-Jul-2017 17:15:03 -0700 Patient Name: KEELEY LITTLE Study Date: 10-Jul-2017 [id number]
[2017-07-10 17:38] LABS: THYROID STIMULATING HORMONE 1.41 MIU/L (0.465-4.680)
[2017-07-10] MEDS: metFORMIN 500 MG TAB PO SCH (17:50)
[2017-07-10] MEDS: FUROSEMIDE 20 MG TAB PO SCH (17:50)
[2017-07-10] MEDS: INSULIN ASPART [NOVOLOG] 3 ML PEN SC SCH ×3 (17:52→21:05)
[2017-07-10 19:00] LABS: CREATINE KINASE 72 IU/L (23-200)
[2017-07-10 19:19] LABS: CK-MB 0.34 ng/ml (0.0-2.4); TROPONIN-I < 0.012 ng/ml (0.00-0.12)
[2017-07-10] MEDS ORDERED: NON-FORMULARY/PATIENT OWN MED (Insulin Degludec (Tresiba Flextouch U-100) 40 UNIT) SQ SCH (21:00)
[2017-07-10] MEDS: ATORVASTATIN 40 MG TAB PO SCH (21:03)
[2017-07-10] MEDS: INSULIN GLARGINE [LANtus] 3 ML PEN SC SCH (21:06)
[2017-07-11] VITALS (12 sets, daily range): BP systolic 99–121; BP diastolic 55–77; PULSE 62–91; RESP 17–20
[2017-07-11 01:52] LABS: TROPONIN-I 0.013 ng/ml (0.00-0.12)
[2017-07-11 01:55] LABS: CK-MB 0.36 ng/ml (0.0-2.4)
[2017-07-11] MEDS: ACCU-CHEK XX SCH (02:00)
[2017-07-11] MEDS ORDERED: ACCU-CHEK XX SCH ×2 (02:00)
[2017-07-11] MEDS: PANTOPRAZOLE (EC) 40 MG TAB PO SCH (05:46)
[2017-07-11] MEDS: FUROSEMIDE 20 MG TAB PO SCH ×2 (05:46→17:44)
[2017-07-11 05:50] LABS: BASOPHILS % 0.5 % (0.0-2.0); EOSINOPHILS # 0.2 10^3/ul (0.0-0.5); EOSINOPHILS % 2.2 % (0.0-7.0); HEMOGLOBIN 13.7 g/dl (14.0-18.0); LYMPHOCYTES # 2.4 10^3/ul (0.8-2.9); LYMPHOCYTES % 28.9 % (15.0-51.0); MEAN CORPUSCULAR HEMOGLOBIN 29.7 pg (29.0-33.0); MEAN CORPUSCULAR HGB CONC 33.4 g/dl (32.0-37.0); MEAN CORPUSCULAR VOLUME 88.9 fl (82.0-101.0); MEAN PLATELET VOLUME 12.5 fl (7.4-10.4); MONOCYTE # 0.6 10^3/ul (0.3-0.9); MONOCYTES % 7.8 % (0.0-11.0); NEUTROPHIL # 4.9 10^3/ul (1.6-7.5); NEUTROPHILS % 60.4 % (39.0-77.0); PLATELET COUNT 154 10^3/UL (140-415); RED BLOOD COUNT 4.61 10^6/ul (4.70-6.10); RED CELL DISTRIBUTION WIDTH 12.5 % (11.5-14.5); WHITE BLOOD COUNT 8.2 10^3/ul (4.8-10.8)
[2017-07-11 06:30] LABS: CALCIUM 9.3 mg/dl (8.4-10.2); CREATININE 0.93 mg/dl (0.61-1.24); POTASSIUM 3.7 mmol/L (3.5-5.1)
[2017-07-11] MEDS: metFORMIN 500 MG TAB PO SCH ×2 (07:43→17:44)
[2017-07-11] MEDS: INSULIN ASPART [NOVOLOG] 3 ML PEN SC SCH ×7 (07:46→21:00)
--- NOTE | 2017-07-11 08:39 | CONS ---
DATE OF ADMISSION: 07/10/2017 DATE OF CONSULTATION: 07/10/2017 CARDIOLOGY CONSULTATION REASON FOR CONSULTATION: Chest pain, assess for acute coronary syndrome. REQUESTING PHYSICIAN: Janes Jaramillo MD HISTORY OF PRESENT ILLNESS: Mr. Mccann is a 56-year-old male well known to myself as a primar y office patient with a history of coronary artery disease, status post coronary artery bypass graft surgery in 2016, hypertension, dyslipidemia, diabetes mellitus, who initially presented with compla ints of left neck pain radiating down to his chest with associated chest pain and left arm pain. Up on arrival, temperature 98.3, blood pressure 110/69, pulse 72, respiratory rate 20, saturating 100%. The patient's labs were notable for a white blood cell count of 9.1, hemoglobin 13.2, platelet cou nt of 168. Sodium 138, potassium 3.3, creatinine 0.89, BUN 24, AST 25, ALT 52. Troponin negative. BNP of 225. The patient underwent a chest x-ray revealing mild left base atelectasis versus airspa ce disease. The patient's electrocardiogram revealed normal sinus rhythm, rate of 83 with a left bu ndle branch block secondary to repolarization abnormalities. Patient subsequently admitted to the [facility] and since admit to the floor, continues to have neck pain radiating to the chest. The patient has had additional troponins return negative, 2 negative troponins. PAST MEDICAL HISTORY: As above in HPI with patient undergoing a stress test 05/23/2017, revealing a n EF of 32% with nonreversible defects. MEDICATIONS CURRENTLY IN HOSPITAL: 1. Aspirin 81 mg daily. 2. Protonix 40 mg daily. 3. Lipitor 40 mg at bedtime. 4. Carvedilol 6.25 mg p.o. b.i.d. 5. Metformin 500 mg b.i.d. 6. Lasix 20 mg p.o. b.i.d. 7. Glucose p.r.n. 8. Imdur 30 mg daily. 9. Zofran p.r.n. 10. Morphine p.r.n. ALLERGIES: NO KNOWN DRUG ALLERGIES. SOCIAL HISTORY: No tobacco, ETOH or illicit drug use. FAMILY HISTORY: No history of sudden cardiac or early CAD. REVIEW OF SYSTEMS: As above in HPI. CONSTITUTIONAL: No fevers, chills. PULMONARY: No current shortness of breath. CARDIOVASCULAR: No current chest pain. GASTROINTESTINAL: No vomiting. GENITOURINARY: No hematuria. MUSCULOSKELETAL: Degenerative joint disease. PSYCHIATRIC: The patient denies depression. NEUROLOGIC: No documented history of CVA. PHYSICAL EXAMINATION: VITAL SIGNS: Temperature of 98, blood pressure 113/73, pulse 79, respirations 16, saturating 97%. GENERAL: The patient is alert, awake, in no acute distress. NECK: JVP approximately 8 to 9 cm of water. CHEST: Fair movement throughout with mildly decreased breath sounds at the bases bilaterally. HEART: Regular rate and rhythm. Normal S1, S2, I/ systolic murmur, nondisplaced PMI. ABDOMEN: Positive bowel sounds, soft. EXTREMITIES: No pitting edema, 1+ pulses bilaterally, posterior tibial. LABORATORY DATA: Most recently from today, white count of 8.1, hemoglobin 12.8, platelet count of 1 42. Sodium 139, potassium 3.1, creatinine 0.94, BUN 22, glucose of 331. Troponin negative x2. IMAGING STUDIES: As above in HPI. No further imaging studies for my review at this time. ECG: As above in HPI. No further electrocardiograms for my review at this time. IMPRESSION: 1. Chest pain. Assess for acute coronary syndrome at this time, with somewhat atypical symptomatol ogy for cardiac etiology with a negative stress test in May 2017. Chest pain radiating from h is neck down to his chest. 2. Abnormal electrocardiogram with an IVCD, left bundle branch block pattern. 3. Hypertension. 4. Dyslipidemia. 5. Coronary artery disease status post coronary artery bypass graft surgery June. 6. Diabetes mellitus, uncontrolled blood sugars. 7. Hypokalemia. 8. Mild anemia. RECOMMENDATIONS: 1. At this time, would maintain the patient on telemetry monitoring to follow rhythm and rate contr ol closely. 2. Complete the patient's rule out for myocardial infarction to ensure the patient's chest pain is not due to any acute coronary syndrome such as acute myocardial infarction. 3. Continue the patient's current aspirin for prophylaxis against cardiovascular events. 4. Continue the patient's current statin at this time, adjust it according to a fasting lipid panel that is to be checked. 5. We will discontinue the patient's current carvedilol, following blood pressure closely, and we w ill continue the patient's Imdur, antianginal effect, and we will increase as tolerated and if not a ble to be increased further due to blood pressure, we will initiate patient on Ranexa and follow sym ptomatology. 6. Continue the patient's p.o. Lasix at this time, following strict I's and O's to grade diuresis c losely. 7. Adjustment of the patient's insulin therapy as necessary to improve overall blood sugar control. Thank you for allowing me to take part in the care of this patient. I will continue to follow along very closely with you. Further recommendations will be made as the patient progresses through his inpatient hospital clinical course. Dictated By: THAI KISER/JOHNNA Conf#: [id number] DID#: [id number] CC: JANES JARAMILLO MD;*EndCC*
[2017-07-11] MEDS: ASPIRIN 81 MG TAB PO SCH (08:45)
[2017-07-11] MEDS: ISOSORBIDE MONONITRATE(SR)30 MG TAB PO SCH (08:45)
--- NOTE | 2017-07-11 13:35 | RADRPT ---
Vent Rate: 77 bpm RR Interval: 0 msec MI Interval: 158 msec QRS Duration: 146 msec QT Interval: 418 msec QTC Interval: 473 msec P-R-T Max: 56 - 0 - 130 degrees Normal sinus rhythm Left bundle branch block Abnormal ECG Electronically Signed By: Arthur Sunshine [id number]
[2017-07-11] MEDS ORDERED: ACETAMINOPHEN 325 MG TAB PO PRN (18:30)
--- NOTE | 2017-07-11 20:54 | CONS ---
Date/Time of Note Date/Time of Note DATE: 07/11/17 TIME: 20:50 Assessment/Plan Assessment/Plan Chief Complaint/Hosp Course IMPRESSION: 1. Chest pain. Assess for acute coronary syndrome at this time, with somewhat atypical symptomatology for cardiac etiology with a negative stress test in May 2017. Chest pain radiating from his neck down to his chest.-negative trop x 3/Echo EF 30-35% unchanged from negative stress test done 05/2017. CP currently resolved 2. Abnormal electrocardiogram with an IVCD, left bundle branch block pattern. 3. Hypertension. 4. Dyslipidemia. 5. Coronary artery disease status post coronary artery bypass graft surgery 2015, June. 6. Diabetes mellitus, uncontrolled blood sugars. 7. Hypokalemia. 8. Mild anemia. Recc: -Tele -serial ecg's -Contineu coreg/imdur -add low dose ACEI afterload reduction -Continue PO lasix -Continue asa -If remains pain free then ok for d/c planning in AM on current medical therapy with outpatient f/u already scheduled with me Problems: Consultation Date/Type/Reason Admit Date/Time Jul 10, 2017 at 02:03 Initial Consult Date 07/10/2017 Type of Consultation: cardiology Reason for Consultation chest pain Referring Provider: ZAKIYA BOURGEOIS MD Exam/Review of Systems Vital Signs Vitals Vital Signs Date Time Temp Pulse Resp B/P Pulse Ox O2 Delivery O2 Flow Rate FiO2 07/11/17 20:04 77 07/11/17 19:49 97.4 19 118/69 97 07/10/17 04:00 Room Air Intake and Output 07/10/17 07/10/17 07/11/17 15:00 23:00 07:00 Intake Total 980 ml 700 ml Balance 980 ml 700 ml Exam Review of Systems: CONSTITUTIONAL: No fevers, chills. PULMONARY: No sob CARDIOVASCULAR: No chest pain/palpitations GASTROINTESTINAL: No nausea/vomiting. GENITOURINARY: No hematuria/dysuria. MUSCULOSKELETAL: No myagias/arthalgias. PSYCHIATRIC: The patient denies depression. NEUROLOGIC: No weakness Constitutional: alert, oriented Psych: no complaints Head: normocephalic ENMT: mucosa pink and moist Neck: jvd (9 cm water), supple Respiratory: clear to auscultation Cardiovascular: regular rate and rhythm Gastrointestinal: non-tender, soft Musculoskeletal: muscle tone (normal) Extremities: edema (none) Neurological: other (NO focal deficits) Results Result Diagram: 07/11/17 0520 07/11/17 0519 Results 24 hrs Laboratory Tests Test 07/10/17 20:56 07/11/17 00:16 07/11/17 02:21 07/11/17 05:19 Bedside Glucose 300 H 188 Creatine Kinase 68 Creatine Kinase Index 0.5 Creatinine Kinase MB (Mass) 0.36 Troponin I 0.013 Sodium Level 142 Potassium Level 3.7 Chloride Level 100 Carbon Dioxide Level 32 H Anion Gap 14 Blood Urea Nitrogen 18 Creatinine 0.93 Glucose Level 210 # Calcium Level 9.3 Triglycerides Level 330 H Cholesterol Level 140 LDL Cholesterol, Calculated 46 HDL Cholesterol 28 Cholesterol/HDL Ratio 5.0 Test 07/11/17 05:20 07/11/17 07:35 07/11/17 11:50 07/11/17 17:35 White Blood Count 8.2 Red Blood Count 4.61 L Hemoglobin 13.7 L Hematocrit 41.0 L Mean Corpuscular Volume 88.9 Mean Corpuscular Hemoglobin 29.7 Mean Corpuscular Hemoglobin Concent 33.4 Red Cell Distribution Width 12.5 Platelet Count 154 Mean Platelet Volume 12.5 H Neutrophils % 60.4 Lymphocytes % 28.9 Monocytes % 7.8 Eosinophils % 2.2 Basophils % 0.5 Nucleated Red Blood Cells % 0.0 Neutrophils # 4.9 Lymphocytes # 2.4 Monocytes # 0.6 Eosinophils # 0.2 Basophils # 0.0 Nucleated Red Blood Cells # 0.0 Hemoglobin A1c 10.3 H Bedside Glucose 210 209 183 Medications Medications Current Medications Ondansetron HCl (Zofran Inj) 4 mg Q4H PRN IV NAUSEA AND/OR VOMITING; Start at 04:30 Morphine Sulfate (morphine) 2 mg Q4H PRN IV PAIN LEVEL 8-10 Last administered on 07/10/17 11:10; Admin Dose 2 MG; Start 07/10/17 at 04:30 Aspirin (Aspirin) 81 mg DAILY PO Last administered on 07/11/17 08:45; Admin Dose 81 MG; Start 07/11/17 at 09:00 Atorvastatin Calcium (Lipitor) 40 mg HS PO Last administered on 07/10/17 21: 03; Admin Dose 40 MG; Start 07/10/17 at 21:00 Carvedilol (Coreg) 6.25 mg BID PO Last administered on 07/11/17 08:44; Admin Dose 6.25 MG; Start 07/10/17 at 21:00 Pantoprazole (Protonix Tab) 40 mg DAILY@06 PO Last administered on 07/11/17 05:46; Admin Dose 40 MG; Start 07/11/17 at 06:00 Miscellaneous Information 1 ea NOTE XX ; Start 07/10/17 at 16:00 Glucose (Glutose) 15 gm Q15M PRN PO DECREASED GLUCOSE; Start 07/10/17 at 16:00 Glucose (Glutose) 22.5 gm Q15M PRN PO DECREASED GLUCOSE; Start 07/10/17 at 16: 00 Dextrose (D50w Syringe) 25 ml Q15M PRN IV DECREASED GLUCOSE; Start 07/10/17 at 16:00 Dextrose (D50w Syringe) 50 ml Q15M PRN IV DECREASED GLUCOSE; Start 07/10/17 at 16:00 Glucagon (Glucagen) 1 mg Q15M PRN IM DECREASED GLUCOSE; Start 07/10/17 at 16: 00 Glucose (Glutose) 15 gm Q15M PRN BUCCAL DECREASED GLUCOSE; Start 07/10/17 at 16:00 Isosorbide Mononitrate (Imdur) 60 mg DAILY PO Last administered on 07/11/17 08:45; Admin Dose 60 MG; Start 07/11/17 at 09:00 Diagnostic Test (Pha) (Accu-Chek) 1 ea 02 XX ; Start 07/11/17 at 02:00 Insulin Glargine (Lantus) 40 unit QHS SC Last administered on 07/10/17 21:06 ; Admin Dose 40 UNIT; Start 07/10/17 at 21:00 Acetaminophen (Tylenol Tab) 650 mg Q6H PRN PO PAIN AND OR ELEVATED TEMP; Start 07/11/17 at 18:30 THAI GONZALEZ Jul 11, 2017 20:54
[2017-07-11] MEDS: ATORVASTATIN 40 MG TAB PO SCH (20:59)
[2017-07-11] MEDS: INSULIN GLARGINE [LANtus] 3 ML PEN SC SCH (21:02)
--- NOTE | 2017-07-11 23:47 | HP ---
Date/Time of Note Date/Time of Note DATE: 07/11/17 TIME: 18:05 Assessment/Plan Lines/Catheters IV Catheter Type (from Nrsg): Saline Lock Urinary Cath still in place: No HPI/ROS Admit Date/Time Admit Date/Time Jul 10, 2017 at 02:03 Hx of Present Illness -Chest pain, rule out acute coronary syndrome. Will obtain cardiac enzymes every 8 hours 3 and 12-lead EKG. continue aspirin nitroglycerin and morphine for pain. Dr. León is asked to see patient in cardiology consultation. -Coronary artery disease, status post four-vessel CABG in 2016. 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 Plan of care discussed with Dr. Jaramillo. KALLI Respiratory: no complaints Cardiovascular: no complaints Gastrointestinal: no complaints Musculoskeletal: no complaints PMH/Family/Social Past Medical History Medical History: congestive heart failure, coronary artery disease, diabetes, hypertension Social History Alcohol Use: none Smoking Status: Never smoker Drug Use: none Exam/Review of Systems Vital Signs Vitals Vital Signs Date Time Temp Pulse Resp B/P Pulse Ox O2 Delivery O2 Flow Rate FiO2 07/11/17 16:03 97.4 77 18 113/67 96 07/10/17 04:00 Room Air Intake and Output 07/10/17 07/10/17 07/11/17 15:00 23:00 07:00 Intake Total 980 ml 700 ml Balance 980 ml 700 ml Exam Constitutional: alert, oriented, well developed Respiratory: diminished breath sounds, normal air movement Cardiovascular: nl pulses, other Gastrointestinal: non-tender, soft Musculoskeletal: swelling Labs Result Diagram: 07/11/17 0520 07/11/17 0519 Medications Medications Current Medications Ondansetron HCl (Zofran Inj) 4 mg Q4H PRN IV NAUSEA AND/OR VOMITING; Start at 04:30 Morphine Sulfate (morphine) 2 mg Q4H PRN IV PAIN LEVEL 8-10 Last administered on 07/10/17 11:10; Admin Dose 2 MG; Start 07/10/17 at 04:30 Aspirin (Aspirin) 81 mg DAILY PO Last administered on 07/11/17 08:45; Admin Dose 81 MG; Start 07/11/17 at 09:00 Atorvastatin Calcium (Lipitor) 40 mg HS PO Last administered on 07/10/17 21: 03; Admin Dose 40 MG; Start 07/10/17 at 21:00 Carvedilol (Coreg) 6.25 mg BID PO Last administered on 07/11/17 08:44; Admin Dose 6.25 MG; Start 07/10/17 at 21:00 Pantoprazole (Protonix Tab) 40 mg DAILY@06 PO Last administered on 07/11/17 05:46; Admin Dose 40 MG; Start 07/11/17 at 06:00 Miscellaneous Information 1 ea NOTE XX ; Start 07/10/17 at 16:00 Glucose (Glutose) 15 gm Q15M PRN PO DECREASED GLUCOSE; Start 07/10/17 at 16:00 Glucose (Glutose) 22.5 gm Q15M PRN PO DECREASED GLUCOSE; Start 07/10/17 at 16: 00 Dextrose (D50w Syringe) 25 ml Q15M PRN IV DECREASED GLUCOSE; Start 07/10/17 at 16:00 Dextrose (D50w Syringe) 50 ml Q15M PRN IV DECREASED GLUCOSE; Start 07/10/17 at 16:00 Glucagon (Glucagen) 1 mg Q15M PRN IM DECREASED GLUCOSE; Start 07/10/17 at 16: 00 Glucose (Glutose) 15 gm Q15M PRN BUCCAL DECREASED GLUCOSE; Start 07/10/17 at 16:00 Isosorbide Mononitrate (Imdur) 60 mg DAILY PO Last administered on 07/11/17 08:45; Admin Dose 60 MG; Start 07/11/17 at 09:00 Diagnostic Test (Pha) (Accu-Chek) 1 ea 02 XX ; Start 07/11/17 at 02:00 Insulin Glargine (Lantus) 40 unit QHS SC Last administered on 07/10/17 21:06 ; Admin Dose 40 UNIT; Start 07/10/17 at 21:00 LIAM CARRILLO Jul 11, 2017 18:15
--- NOTE | 2017-07-11 23:53 | PN ---
Date/Time of Note Date/Time of Note DATE: 07/11/17 TIME: 23:48 Assessment/Plan Lines/Catheters IV Catheter Type (from Nrsg): Saline Lock Urinary Cath still in place: No Assessment/Plan Chief Complaint/Hosp Course -Chest pain, rule out acute coronary syndrome. Will obtain cardiac enzymes every 8 hours 3 and 12-lead EKG. continue aspirin nitroglycerin and morphine for pain. Dr. León is asked to see patient in cardiology consultation. -Coronary artery disease, status post four-vessel CABG in 2016. 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 Plan of care discussed with Dr. Jaramillo. Problems: Exam/Review of Systems Vital Signs Vitals Vital Signs Date Time Temp Pulse Resp B/P Pulse Ox O2 Delivery O2 Flow Rate FiO2 07/11/17 16:03 97.4 77 18 113/67 96 07/10/17 04:00 Room Air Intake and Output 07/10/17 07/10/17 07/11/17 15:00 23:00 07:00 Intake Total 980 ml 700 ml Balance 980 ml 700 ml Results Result Diagram: 07/11/1751907/11/17 0519 Results 24 hrs Laboratory Tests Test 07/11/17 00:16 07/11/17 02:21 07/11/17 05:19 07/11/17 05:20 Creatine Kinase 68 Creatine Kinase Index 0.5 Creatinine Kinase MB (Mass) 0.36 Troponin I 0.013 Bedside Glucose 188 Sodium Level 142 Potassium Level 3.7 Chloride Level 100 Carbon Dioxide Level 32 H Anion Gap 14 Blood Urea Nitrogen 18 Creatinine 0.93 Glucose Level 210 # Calcium Level 9.3 Triglycerides Level 330 H Cholesterol Level 140 LDL Cholesterol, Calculated 46 HDL Cholesterol 28 Cholesterol/HDL Ratio 5.0 White Blood Count 8.2 Red Blood Count 4.61 L Hemoglobin 13.7 L Hematocrit 41.0 L Mean Corpuscular Volume 88.9 Mean Corpuscular Hemoglobin 29.7 Mean Corpuscular Hemoglobin Concent 33.4 Red Cell Distribution Width 12.5 Platelet Count 154 Mean Platelet Volume 12.5 H Neutrophils % 60.4 Lymphocytes % 28.9 Monocytes % 7.8 Eosinophils % 2.2 Basophils % 0.5 Nucleated Red Blood Cells % 0.0 Neutrophils # 4.9 Lymphocytes # 2.4 Monocytes # 0.6 Eosinophils # 0.2 Basophils # 0.0 Nucleated Red Blood Cells # 0.0 Hemoglobin A1c 10.3 H Test 07/11/17 07:35 07/11/17 11:50 07/11/17 17:35 07/11/17 20:52 Bedside Glucose 210 209 183 168 Medications Medications Current Medications Ondansetron HCl (Zofran Inj) 4 mg Q4H PRN IV NAUSEA AND/OR VOMITING; Start at 04:30 Morphine Sulfate (morphine) 2 mg Q4H PRN IV PAIN LEVEL 8-10 Last administered on 07/10/17 11:10; Admin Dose 2 MG; Start 07/10/17 at 04:30 Aspirin (Aspirin) 81 mg DAILY PO Last administered on 07/11/17 08:45; Admin Dose 81 MG; Start 07/11/17 at 09:00 Atorvastatin Calcium (Lipitor) 40 mg HS PO Last administered on 07/10/17 21: 03; Admin Dose 40 MG; Start 07/10/17 at 21:00 Carvedilol (Coreg) 6.25 mg BID PO Last administered on 07/11/17 08:44; Admin Dose 6.25 MG; Start 07/10/17 at 21:00 Pantoprazole (Protonix Tab) 40 mg DAILY@06 PO Last administered on 07/11/17 05:46; Admin Dose 40 MG; Start 07/11/17 at 06:00 Miscellaneous Information 1 ea NOTE XX ; Start 07/10/17 at 16:00 Glucose (Glutose) 15 gm Q15M PRN PO DECREASED GLUCOSE; Start 07/10/17 at 16:00 Glucose (Glutose) 22.5 gm Q15M PRN PO DECREASED GLUCOSE; Start 07/10/17 at 16: 00 Dextrose (D50w Syringe) 25 ml Q15M PRN IV DECREASED GLUCOSE; Start 07/10/17 at 16:00 Dextrose (D50w Syringe) 50 ml Q15M PRN IV DECREASED GLUCOSE; Start 07/10/17 at 16:00 Glucagon (Glucagen) 1 mg Q15M PRN IM DECREASED GLUCOSE; Start 07/10/17 at 16: 00 Glucose (Glutose) 15 gm Q15M PRN BUCCAL DECREASED GLUCOSE; Start 07/10/17 at 16:00 Isosorbide Mononitrate (Imdur) 60 mg DAILY PO Last administered on 07/11/17 08:45; Admin Dose 60 MG; Start 07/11/17 at 09:00 Diagnostic Test (Pha) (Accu-Chek) 1 ea 02 XX ; Start 07/11/17 at 02:00 Insulin Glargine (Lantus) 40 unit QHS SC Last administered on 07/10/17 21:06 ; Admin Dose 40 UNIT; Start 07/10/17 at 21:00 LIAM CARRILLO Jul 11, 2017 23:53
[2017-07-12] VITALS (9 sets, daily range): BP systolic 104–126; BP diastolic 59–78; PULSE 64–83; RESP 17–21
--- NOTE | 2017-07-12 00:48 | RADRPT ---
PROCEDURE: US left lower extremity venous Doppler CLINICAL INDICATION: Swelling TECHNIQUE: Multiple sonographic images of the left lower extremity deep venous system was obtained utilizing grayscale, color-flow, compressive sonography and Doppler imaging with augmentation. COMPARISON: No pertinent prior examinations were submitted for comparison. FINDINGS: There is normal compressibility and flow within the left common femoral, superficial femoral, poplit eal, and calf veins. IMPRESSION: No sonographic evidence for left deep venous thrombosis. RPTAT: HIKT .Roger Palacios MD, MD Date Time Electronically viewed and signed by .Roger Palacios MD, on 07/12/2017 00:48 .T/
[2017-07-12] MEDS: ACCU-CHEK XX SCH (02:00)
[2017-07-12] MEDS: FUROSEMIDE 20 MG TAB PO SCH (05:44)
[2017-07-12] MEDS: PANTOPRAZOLE (EC) 40 MG TAB PO SCH (05:44)
[2017-07-12] MEDS: metFORMIN 500 MG TAB PO SCH (07:11)
[2017-07-12] MEDS: INSULIN ASPART [NOVOLOG] 3 ML PEN SC SCH ×4 (07:32→11:57)
[2017-07-12 07:33] LABS: BASOPHILS % 0.4 % (0.0-2.0); EOSINOPHILS # 0.2 10^3/ul (0.0-0.5); EOSINOPHILS % 2.1 % (0.0-7.0); HEMATOCRIT 39.5 % (42.0-52.0); HEMOGLOBIN 13.1 g/dl (14.0-18.0); LYMPHOCYTES # 2.5 10^3/ul (0.8-2.9); LYMPHOCYTES % 29.9 % (15.0-51.0); MEAN CORPUSCULAR HEMOGLOBIN 29.5 pg (29.0-33.0); MEAN CORPUSCULAR HGB CONC 33.2 g/dl (32.0-37.0); MEAN PLATELET VOLUME 12.4 fl (7.4-10.4); MONOCYTE # 0.6 10^3/ul (0.3-0.9); MONOCYTES % 7.6 % (0.0-11.0); NEUTROPHILS % 59.8 % (39.0-77.0); PLATELET COUNT 141 10^3/UL (140-415); RED BLOOD COUNT 4.44 10^6/ul (4.70-6.10); RED CELL DISTRIBUTION WIDTH 12.4 % (11.5-14.5); WHITE BLOOD COUNT 8.3 10^3/ul (4.8-10.8)
[2017-07-12 07:52] LABS: CALCIUM 8.6 mg/dl (8.4-10.2); CREATININE 0.86 mg/dl (0.61-1.24); POTASSIUM 3.3 mmol/L (3.5-5.1)
[2017-07-12] MEDS: ASPIRIN 81 MG TAB PO SCH (08:43)
[2017-07-12] MEDS: ISOSORBIDE MONONITRATE(SR)30 MG TAB PO SCH (08:44)
--- NOTE | 2017-07-12 08:56 | RADRPT ---
PROCEDURE: XR Left Ankle. CLINICAL INDICATION: Left ankle pain. TECHNIQUE: 3 views. Frontal, lateral, and oblique. COMPARISON: None. FINDINGS: There is no fracture or dislocation. The soft tissues are normal. Articular surfaces are intact. There is no lytic or blastic lesion. There is no radiopaque foreign body. IMPRESSION: 1. Normal images of the left ankle. RPTAT: QQ .Madhav Reddy MD, MD Date Time Electronically viewed and signed by .Madhav Reddy MD, MD on 07/12/2017 08:56 .R/
[2017-07-12] MEDS ORDERED: LISINOPRIL 5 MG TAB PO SCH (09:00)
--- NOTE | 2017-07-12 16:13 | CONS ---
Date/Time of Note Date/Time of Note DATE: 07/12/17 TIME: 16:11 Assessment/Plan Assessment/Plan Chief Complaint/Hosp Course IMPRESSION: 1. Chest pain. Assess for acute coronary syndrome at this time, with somewhat atypical symptomatology for cardiac etiology with a negative stress test in May 2017. Chest pain radiating from his neck down to his chest.-negative trop x 3/Echo EF 30-35% unchanged from negative stress test done 05/2017. CP currently resolved 2. Abnormal electrocardiogram with an IVCD, left bundle branch block pattern. 3. Hypertension. 4. Dyslipidemia. 5. Coronary artery disease status post coronary artery bypass graft surgery 2015, June. 6. Diabetes mellitus, uncontrolled blood sugars. 7. Hypokalemia. 8. Mild anemia. Recc: -Tele -serial ecg's -Contineu coreg/imdur/ACEI -Continue PO lasix -Continue asa -Ok for d/c on current medical therapy with outpatient f/u already scheduled with me Problems: Consultation Date/Type/Reason Admit Date/Time Jul 10, 2017 at 02:03 Initial Consult Date 07/10/2017 Type of Consultation: cardiology Reason for Consultation chest pain Referring Provider: ZAKIYA BOURGEOIS MD Exam/Review of Systems Vital Signs Vitals Vital Signs Date Time Temp Pulse Resp B/P Pulse Ox O2 Delivery O2 Flow Rate FiO2 07/12/17 15:52 98.3 76 17 109/64 98 07/10/17 04:00 Room Air Intake and Output 07/11/17 07/11/17 07/12/17 15:00 23:00 07:00 Intake Total 700 ml 800 ml Balance 700 ml 800 ml Exam Review of Systems: CONSTITUTIONAL: No fevers, chills. PULMONARY: No sob CARDIOVASCULAR: No chest pain/palpitations GASTROINTESTINAL: No nausea/vomiting. GENITOURINARY: No hematuria/dysuria. MUSCULOSKELETAL: No myagias/arthalgias. PSYCHIATRIC: The patient denies depression. NEUROLOGIC: No weakness Constitutional: alert, oriented Psych: no complaints Head: normocephalic ENMT: mucosa pink and moist Neck: jvd (9 cm water), supple Respiratory: diminished breath sounds (at bases/B) Cardiovascular: regular rate and rhythm Gastrointestinal: non-tender, soft Musculoskeletal: muscle tone (normal) Extremities: edema (none) Neurological: other (No focal deficits) Results Result Diagram: 07/12/17 0654 07/12/17 0654 Results 24 hrs Laboratory Tests Test 07/11/17 17:35 07/11/17 20:52 07/12/17 06:54 07/12/17 07:15 Bedside Glucose 183 168 123 White Blood Count 8.3 Red Blood Count 4.44 L Hemoglobin 13.1 L Hematocrit 39.5 L Mean Corpuscular Volume 89.0 Mean Corpuscular Hemoglobin 29.5 Mean Corpuscular Hemoglobin Concent 33.2 Red Cell Distribution Width 12.4 Platelet Count 141 Mean Platelet Volume 12.4 H Neutrophils % 59.8 Lymphocytes % 29.9 Monocytes % 7.6 Eosinophils % 2.1 Basophils % 0.4 Nucleated Red Blood Cells % 0.0 Neutrophils # 5.0 Lymphocytes # 2.5 Monocytes # 0.6 Eosinophils # 0.2 Basophils # 0.0 Nucleated Red Blood Cells # 0.0 Sodium Level 141 Potassium Level 3.3 L Chloride Level 100 Carbon Dioxide Level 29 Anion Gap 15 Blood Urea Nitrogen 16 Creatinine 0.86 Glucose Level 110 # Calcium Level 8.6 Test 07/12/17 11:54 Bedside Glucose 192 Medications Medications Current Medications Ondansetron HCl (Zofran Inj) 4 mg Q4H PRN IV NAUSEA AND/OR VOMITING; Start at 04:30 Morphine Sulfate (morphine) 2 mg Q4H PRN IV PAIN LEVEL 8-10 Last administered on 07/10/17 11:10; Admin Dose 2 MG; Start 07/10/17 at 04:30 Aspirin (Aspirin) 81 mg DAILY PO Last administered on 07/12/17 08:43; Admin Dose 81 MG; Start 07/11/17 at 09:00 Atorvastatin Calcium (Lipitor) 40 mg HS PO Last administered on 07/11/17 20: 59; Admin Dose 40 MG; Start 07/10/17 at 21:00 Carvedilol (Coreg) 6.25 mg BID PO Last administered on 07/12/17 08:44; Admin Dose 6.25 MG; Start 07/10/17 at 21:00 Pantoprazole (Protonix Tab) 40 mg DAILY@06 PO Last administered on 07/12/17 05:44; Admin Dose 40 MG; Start 07/11/17 at 06:00 Miscellaneous Information 1 ea NOTE XX ; Start 07/10/17 at 16:00 Glucose (Glutose) 15 gm Q15M PRN PO DECREASED GLUCOSE; Start 07/10/17 at 16:00 Glucose (Glutose) 22.5 gm Q15M PRN PO DECREASED GLUCOSE; Start 07/10/17 at 16: 00 Dextrose (D50w Syringe) 25 ml Q15M PRN IV DECREASED GLUCOSE; Start 07/10/17 at 16:00 Dextrose (D50w Syringe) 50 ml Q15M PRN IV DECREASED GLUCOSE; Start 07/10/17 at 16:00 Glucagon (Glucagen) 1 mg Q15M PRN IM DECREASED GLUCOSE; Start 07/10/17 at 16: 00 Glucose (Glutose) 15 gm Q15M PRN BUCCAL DECREASED GLUCOSE; Start 07/10/17 at 16:00 Isosorbide Mononitrate (Imdur) 60 mg DAILY PO Last administered on 07/12/17 08:44; Admin Dose 60 MG; Start 07/11/17 at 09:00 Diagnostic Test (Pha) (Accu-Chek) 1 ea 02 XX ; Start 07/11/17 at 02:00 Insulin Glargine (Lantus) 40 unit QHS SC Last administered on 07/11/17 21:02 ; Admin Dose 40 UNIT; Start 07/10/17 at 21:00 Acetaminophen (Tylenol Tab) 650 mg Q6H PRN PO PAIN AND OR ELEVATED TEMP Last administered on 07/12/17 07:12; Admin Dose 650 MG; Start 07/11/17 at 18:30 Lisinopril (Zestril) 2.5 mg DAILY PO Last administered on 07/12/17 08:44; Admin Dose 2.5 MG; Start 07/12/17 at 09:00 THAI GONZALEZ Jul 12, 2017 16:13
[2017-07-12] MEDS ORDERED: NOVO3I SC (16:19)
[2017-07-12] MEDS ORDERED: LANT3I SC (16:19)
[2017-07-12] MEDS ORDERED: LISI-313 PO (16:19)
[2017-07-12] MEDS ORDERED: ISOS30TA5 PO (16:19)
[2017-07-12] MEDS ORDERED: POTASSIUM CHLORIDE 20 MEQ POWDER FOR ORAL SOLN PO ONE (16:30)
--- NOTE | 2017-07-12 22:29 | DS ---
Date/Time of Note Date/Time of Note DATE: 07/12/17 TIME: 22:24 Discharge Summary Admission/Discharge Info Admit Date/Time Jul 10, 2017 at 02:03 Discharge Date/Time Jul 12, 2017 at 17:10 Patient Condition: Stable Hx of Present Illness Patient is 56-year-old gentleman with a history of coronary artery disease status post CABG in 2016, hypertension, systolic dysfunction congestive heart failure with ejection fraction of 30% per last echo, history of stroke with left hemiparesis, patient was able to ambulate at home using a walker. Patient with history of diabetes mellitus type 2 uses insulin at home, anxiety, and obesity. Patient presented to the emergency room with complaints of chest pain with radiation to the neck and the head and left shoulder. Patient also complains of shortness of breath associated with chest pain. Patient denies any fever denies cough denies any nausea vomiting denies diarrhea denies constipation. Patient troponin was found to be negative on admission, chest x- ray is negative for any pneumonia. Patient also noted to have elevated blood sugar. Patient complains of occasional tachycardia however denies any palpitations now. Patient was given nitroglycerin and morphine and admitted for further evaluation and management to telemetry floor. Hospital Course -Atypical Chest pain, Assess for acute coronary syndrome, negative stress test in May 2017. negative trop x 3/Echo EF 30-35% unchanged from negative stress test done 05/2017. CP currently resolved. Dr. León is following patient in cardiology consultation. -Coronary artery disease, status post four-vessel CABG in 2015. Continue aspirin and Imdur and Coreg -Systolic and diastolic congestive heart failure with ejection fraction of 30% -History of CVA with left hemiparesis -Diabetes mellitus type 2, continue Lantus and premeal NovoLog -Anxiety Home Meds Active Scripts Insulin Aspart* (Novolog Insulin Pen*) 100 Unit/Ml Soln, 12 UNIT SC WITH MEALS for 30 Days Prov:OBIE FREEDMAN 07/12/17 Insulin Glargine* (Lantus*) 100 Unit/Ml Soln, 40 UNIT SC QHS for 30 Days Prov:OBIE FREEDMAN 07/12/17 Isosorbide Mononitrate* (Isosorbide Mononitrate*) 30 Mg Tab.er.24h, 60 MG PO DAILY for 30 Days Prov:OBIE FREEDMAN 07/12/17 Lisinopril* (Lisinopril*) 5 Mg Tablet, 2.5 MG PO DAILY for 30 Days, TAB Prov:OBIE FREEDMAN 07/12/17 Ondansetron Hcl* (Zofran*) 4 Mg Tablet, 4 MG PO Q8H Y for NAUSEA AND/OR VOMITING , #20 TAB 0 Refills Prov:TABATHA HAWIKNS 09/13/16 Hydrocodone/Acetaminophen ([place] 5-325 Tablet) 1 Each Tablet, 2 TAB PO Q6H Y for PAIN, #20 TAB 0 Refills Prov:TABATHA HAWKINS 09/13/16 Pantoprazole* (Pantoprazole*) 40 Mg Tablet.dr, 40 MG PO DAILY@06, #60 Prov:ERICA SARKAR MD 07/23/16 Carvedilol* (Carvedilol*) 6.25 Mg Tablet, 6.25 MG PO BID, #180 TAB Prov:ERICA SARKAR MD 07/23/16 Atorvastatin* (Atorvastatin*) 40 Mg Tablet, 40 MG PO HS, #90 TAB Prov:ERICA SARKAR MD 07/23/16 Aspirin (Aspirin) 81 Mg Chew, 81 MG PO DAILY, #100 TAB Prov:ERICA SARKAR MD 07/23/16 Reported Medications Nitroglycerin* (Nitrostat*) 0.4 Mg Tab.subl, 0.4 MG SL Q5MIN Y for CHEST PAIN, BOTTLE 07/10/17 Furosemide* (Furosemide*) 20 Mg Tablet, 20 MG PO BID, #30 TAB 07/10/17 Ergocalciferol* (Drisdol* (Vitamin D2)) 50,000 Unit Capsule, 43206 UNIT PO Q7D, CAP 09/13/16 Metformin Hcl* (Metformin Hcl*) 500 Mg Tablet, 500 MG PO WITH BREAKFAST DINNE, # 60 TAB 09/13/16 Ferrous Sulfate* (Ferrous Sulfate*) 325 Mg Tabec, 325 MG PO BID, TAB 09/13/16 Discontinued Reported Medications Insulin Degludec (Tresiba Flextouch U-100) 100 Unit/1 Ml Insuln.pen, 40 UNIT SQ QHS 09/13/16 Discontinued Scripts Benazepril Hcl* (Benazepril Hcl*) 5 Mg Tablet, 5 MG PO DAILY, #30 TAB Prov:LIAM CARRILLO 05/23/17 Isosorbide Mononitrate* (Isosorbide Mononitrate*) 30 Mg Tab.er.24h, 30 MG PO DAILY for 30 Days Prov:LIAM CARRILLO 05/23/17 Hydrochlorothiazide* (Hydrochlorothiazide*) 25 Mg Tab, 25 MG PO DAILY, #90 TAB Prov:ERICA SARKAR MD 07/23/16 Follow-up Plan f/up with Dr León in 2 weeks, f/up with PMD in 2 weeks. Primary Care Provider Elise Rene MD Time spent on discharge: > 30 minutes Pending Labs Laboratory Tests Test 07/12/17 06:54 07/12/17 07:15 07/12/17 11:54 White Blood Count 8.310^3/ul (4.8-10.8) Red Blood Count 4.4410^6/ul (4.70-6.10) Hemoglobin 13.1g/dl (14.0-18.0) Hematocrit 39.5% (42.0-52.0) Mean Corpuscular Volume 89.0fl (82.0-101.0) Mean Corpuscular Hemoglobin 29.5pg (29.0-33.0) Mean Corpuscular Hemoglobin Concent 33.2g/dl (32.0-37.0) Red Cell Distribution Width 12.4% (11.5-14.5) Platelet Count 51147^3/UL (140-415) Mean Platelet Volume 12.4fl (7.4-10.4) Neutrophils % 59.8% (39.0-77.0) Lymphocytes % 29.9% (15.0-51.0) Monocytes % 7.6% (0.0-11.0) Eosinophils % 2.1% (0.0-7.0) Basophils % 0.4% (0.0-2.0) Nucleated Red Blood Cells % 0.0/100WBC (0.0-0.0) Neutrophils # 5.010^3/ul (1.6-7.5) Lymphocytes # 2.510^3/ul (0.8-2.9) Monocytes # 0.610^3/ul (0.3-0.9) Eosinophils # 0.210^3/ul (0.0-0.5) Basophils # 0.010^3/ul (0.0-0.1) Nucleated Red Blood Cells # 0.010^3/ul (0.0-0.0) Sodium Level 141mmol/L (135-144) Potassium Level 3.3mmol/L (3.5-5.1) Chloride Level 100mmol/L (97-110) Carbon Dioxide Level 29mmol/L (21-31) Anion Gap 15 (8-16) Blood Urea Nitrogen 16mg/dl (7-20) Creatinine 0.86mg/dl (0.61-1.24) Glucose Level 110mg/dl (70-220) Calcium Level 8.6mg/dl (8.4-10.2) Bedside Glucose 123mg/dL (70-220) 192mg/dL (70-220) OBIE FREEDMAN Jul 12, 2017 22:29
== END 2017-07-12 17:10 | disposition home or self-care (01) | DRG 313 ==
LOC: E/R 00:04 → MS4 02:03
PROVIDERS: ADMIT Internal Medicine; ATTEND Internal Medicine
DX: R07.9 Chest pain, unspecified (principal); I25.10 Atherosclerotic heart disease of native coronary artery without angina pectoris; I11.0 Hypertensive heart disease with heart failure; I69.854 Hemiplegia and hemiparesis following other cerebrovascular disease affecting left non-dominant side; I50.42 Chronic combined systolic (congestive) and diastolic (congestive) heart failure; E11.9 Type 2 diabetes mellitus without complications; I10 Essential (primary) hypertension; D64.9 Anemia, unspecified; I50.40 Unspecified combined systolic (congestive) and diastolic (congestive) heart failure; F41.9 Anxiety disorder, unspecified; R00.0 Tachycardia, unspecified; Z95.1 Presence of aortocoronary bypass graft; E78.5 Hyperlipidemia, unspecified; E87.6 Hypokalemia
CPT/HCPCS: 36415; 71010; 73610; 80048; 80053; 80061; 82550; 82553; 82962; 83036; 83880; 84443; 84484; 85025; 93005; 93306; 93971; J1815; J2270

== ENCOUNTER 2018-01-09 16:11 | Inpatient (IN) | END 2018-01-09 21:00 | disposition home or self-care (01) | DRG 227 ==

== ENCOUNTER 2018-04-14 11:10 | Emergency (ER) | END 2018-04-14 12:25 | disposition home or self-care (01) ==

== ENCOUNTER 2019-01-02 07:13 | Day surgery (SDC) | payer BC ==
[2019-01-02] VITALS (19 sets, daily range): BP systolic 101–129; BP diastolic 69–85; PULSE 72–86; RESP 15–25; Ht 162.6 cm; Wt 77.0 kg
[~2019-01-02] VITALS: Ht 162.6 cm; Wt 77.0 kg
[~2019-01-02 07:13] MED LIST changes: -ASPI81TA3 PO; +ASPI81TA52 PO; -BENA5TAB2 PO; +CARV25TA79 PO; -CARV6.2579 PO; +COL625 PO; +EMPA10TA PO; +ERGO500013 PO; -ERGO500014 PO; +FURO-109 PO; -HYDR-906 PO; -HYDR25TA6 PO; -INSU100I31 SQ; +INSU100I33 SC; -ISOS30TA5 PO; +ISOS60TA PO; +LINA5TAB PO; +LISI2.5T59 PO; +METF500T24 PO; -METF500T4 PO; +NITR0.4T39 SL; +NOVO3I SC; -ONDA4TAB8 PO; +PANT40TA3 PO; -PANT40TA4 PO; +SACU1TAB PO; +SPIR25TA PO; +TICA90TA PO
[2019-01-02] MEDS ORDERED: DIPHENHYDRAMINE 50 MG CAP PO SCH (08:00)
[2019-01-02] MEDS ORDERED: DIAZEPAM 5 MG TAB PO SCH (08:00)
[2019-01-02] MEDS ORDERED: SOD CHLORIDE 0.45% 1,000 ML IV SCH (08:00)
[2019-01-02] MEDS ORDERED: FAMOTIDINE 20 MG TAB PO SCH (08:00)
[2019-01-02] MEDS ORDERED: SITA100T11 PO (08:13)
[2019-01-02] MEDS ORDERED: EMPA25TA PO (08:14)
[2019-01-02] MEDS ORDERED: INSU200I SQ (08:15)
[2019-01-02] MEDS ORDERED: RANO500T2 PO (08:16)
[2019-01-02] MEDS ORDERED: INSU100I33 SC (08:16)
[2019-01-02] MEDS ORDERED: GABA100C14 PO (08:17)
[2019-01-02] MEDS ORDERED: METF100010 PO (08:17)
[2019-01-02] MEDS ORDERED: HEPARIN 1000 UNITS/ML 10 ML INJ ONE (08:53)
[2019-01-02] MEDS ORDERED: LIDOCAINE 1% (MDV) 20 ML INJ ONE (08:53)
[2019-01-02] MEDS ORDERED: MIDAZOLAM 1 MG/ML 2 ML INJ ONE (08:54)
[2019-01-02] MEDS ORDERED: VERAPAMIL 5 MG INJ ONE (08:54)
[2019-01-02] MEDS ORDERED: NITROGLYCERIN (IC) 100 MCG/ML INJ ONE (08:54)
[2019-01-02] MEDS ORDERED: FENTAnyl 50 MCG/ML VIAL ONE (08:54)
[2019-01-02] MEDS ORDERED: IODIXANOL LOCM 100 ML BTL ONE ×2 (10:19→11:02)
[2019-01-02] MEDS ORDERED: BIVALIRUDIN 250MG /NS 50 ML 100 ML IVPB ONE (10:29)
[2019-01-02] MEDS ORDERED: TICAGRELOR 90 MG TABLET ONE (10:42)
[2019-01-02] MEDS ORDERED: ASPIRIN 325 MG TAB ONE (10:42)
--- NOTE | 2019-01-02 10:59 | SIPON ---
Date/Time of Note Date/Time of Note DATE: 01/02/19 TIME: 10:57 Operative Report Preoperative Diagnosis 1.angina Postoperative Diagnosis 1.obstructive cad s/p stent to RCA/PLB Operation/Procedure Performed 1.LHC 2.Bypass graft angio 3.Ao root angio Surgeon see signature line mail handler assistant 1.Victor M Anesthesia: moderate sedation Estimated blood loss: minimal Transfusion Required none Specimen none Grafts/Implants none Complications none THAI GONZALEZ Jan 02, 2019 10:59
[2019-01-02] MEDS ORDERED: OXYCODONE/ACETAMINOPHEN (5/325) TAB PO PRN (11:00)
[2019-01-02] MEDS ORDERED: AL HYDROX/MG HYDROX/SIMETH 30 ML CUP PO PRN (11:00)
[2019-01-02] MEDS ORDERED: ZOLPIDEM 5 MG TAB PO PRN (11:00)
[2019-01-02] MEDS ORDERED: ONDANSETRON 4 MG INJ IV PRN (11:00)
[2019-01-02] MEDS ORDERED: ACETAMINOPHEN 325 MG TAB PO PRN (11:00)
[2019-01-02] MEDS ORDERED: morphine 2 MG INJ IV PRN (11:00)
[2019-01-02] MEDS ORDERED: IODIXANOL LOCM 50 ML BTL ONE (11:03)
[2019-01-02] MEDS ORDERED: SOD CHLORIDE 0.9% 1,000 ML IV SCH (11:30)
--- NOTE | 2019-01-02 14:50 | CARRPT ---
DATE OF PROCEDURE: 01/02/2019 TYPE OF PROCEDURES: 1. Left heart catheterization. 2. Coronary angiography. 3. Bypass graft angiography including HENRY arterial graft. 4. Femoral angiography. 5. Measurement of left ventricular end-diastolic pressure. 6. Aortic root angiography. 7. Percutaneous transluminal coronary angioplasty with placement of drug-eluting stent x1 to postero lateral branch right coronary artery, 2.5 x 15 mm. ATTENDING PHYSICIAN: Thai León MD REFERRING PHYSICIAN: Elise Rene MD TYPE OF ANESTHESIA: Conscious and local. INDICATION: Chest pain refractory to medical therapy. BRIEF HISTORY AND HISTORY OF PRESENT ILLNESS: Mr. Mccann is a 58-year-old male with history of coronary artery disease, status post coronary artery bypass graft surgery, who initially presented w ith complaints of substernal chest pain and was placed on ascending medical therapy, but continued to have chest pain. He is now brought to cardiac catheterization lab in order to assess for the possib ility of recurrent significant obstructive coronary artery disease lending to symptoms of chest pain and subsequent ongoing chest pain. DESCRIPTION OF PROCEDURE: After informed consent was obtained, the patient was brought to the [facility] cardiac catheterization lab where his right femoral area was prepped and drape d in usual fashion. A 2% lidocaine was infiltrated into right femoral area in order to achieve adequ ate anesthesia. Using the modified Seldinger technique, the right femoral artery was cannulated and a 6-Setswana arterial sheath was placed. A 6-Setswana JL4 catheter was used in attempt to cannulate the left main coronary ostium. This proved unsuccessful. We tried a JL3.5. This was unsuccessful. If I were able to cannulate with an AL1 after which contrast injection, multiple views of this [place] ve ssel were obtained. The AL1 was removed and a JR4 was used to cannulate the right coronary arterial ostium. With contrast injection, multiple views of the right coronary arterial system were obtained. JR4 was then used to cannulate the saphenous vein graft supplying the diagonal and HENRY supplying t he LAD. It was then removed and LCB was then used to cannulate the saphenous vein graft supplying th e obtuse marginal and this was exchanged for multipurpose in an attempt to find saphenous graft suppl [place] the right coronary artery which was not found. Subsequently at this time, the pigtail catheter was introduced and placed in the aortic root. Aortic root angiography was undertaken with a total of 40 mL of contrast not identifying any further grafts. Subsequently, the pigtail was removed and giv en the finding of significant obstructive lesion in the patient's right coronary artery, we moved dir ectly into an interventional procedure. The patient was given Angiomax bolus continuous infusion. A JR4 guide was used to cannulate the right coronary arterial ostium. A 0.014 balance weight guidewir e was passed distal to the lesion. The lesion was pretreated with a 2.0 x 12 mm balloon up to 14 to 16 atmospheres x2. This was removed and the lesion was stented with a 2.5 x 15 mm drug-eluting stent deployed at 14 atmospheres, post-dilated with the stent delivery system at 16 atmospheres. The sten t delivery balloon was removed. Followup angiogram was obtained revealing excellent result, deployme nt of stent, JEWELL 3 flow throughout the vessel, no signs of complication including perforation or dis section. The patient was given additional 200 mcg of IC nitroglycerin and again followup angiogram w as obtained revealing excellent result, deployment of stent. Subsequently at this time, intervention al guide and guidewires were removed. Final angiographic image of the right femoral arterial inserti on site was then obtained revealing the sheath was placed just in the very proximal portion right fem oral artery. Subsequently, it was sutured in place and removal at a later time when the patient's co agulation profile returns to normal. This completed the procedure. There were no noted complication s. FINDINGS: Coronary angiography: Left main is 3.5 mm with distal 20% stenosis. Circumflex proximall y is 2 mm vessel and becomes subtotally occluded in its mid portion and then there is a very thin rec onstitution flow before becoming 100% occluded. The LAD proximally is a 2 mm vessel and shortly afte r its takeoff just the bifurcation of diagonal becomes 100% occluded, the septal branches bifurcate i n midportion and then diagonal at 2 mm vessel that bifurcates in midportion with an ostial 30% to 40% stenosis and a mid body 50% stenosis. The right coronary artery proximally is a 3.5 mm vessel, has a long stented zone which is widely patent with no significant in-stent restenosis. The PDA appears to possibly flush occluded at its ostium versus very minute portion was then having 100% occlusion. There is a sizable posterolateral branch and has an ostial 40% stenosis just after the distal right c oronary artery has approximately 40% stenosis. In the posterolateral branch itself in the mid portio n, there is a 90% focal stenosis. Bypass graft angiography: This revealed the patient to have a widely patent saphenous vein graft sup plying diagonal with retrograde flow back into the LAD. The HENRY arterial graft supplies a reasonabl e sized distal LAD with no significant intervening stenosis after the anastomosis. The saphenous vei n graft supplying the obtuse marginal is a widely patent graft supplying a very small caliber distal obtuse marginal with no intervening stenoses. PTCA and stent placement: Prior to PTCA and stent placement within the patient's right coronary and posterolateral branch, there was 90% focal stenosis. Post-PTCA and stent placement, there is no resi dual stenosis, JEWELL 3 flow throughout the vessel, very mild step down distal in-stent and no signs of complication including perforation or dissection. TOTAL FLUOROSCOPY TIME: 21 minutes. TOTAL CONTRAST: 250 mL. IMPRESSION: 1. Multivessel obstructive [place] coronary artery disease occluding the patient's LAD, circumflex an d high grade stenosis of the patient's posterolateral branch of the right coronary artery, status pos t successful PTCA and stent placement x1 to posterolateral branch. 2. Widely patent HENRY to LAD. 3. Widely patent saphenous vein graft to diagonal and widely patent saphenous vein graft to obtuse m arginal. 4. Normal left heart filling pressures of 10 to 11. 5. No significant aortic stenosis by gradient. RECOMMENDATIONS: In light of procedure findings at this time, we would: 1. Maximize medical management. 2. Aggressive risk factor reduction. 3. The patient will be maintained on Brilinta 90 mg 1 tab p.o. b.i.d. for at least 6 months and aspi rin 81 mg 1 tab p.o. daily indefinitely. 4. The patient will be admitted to the hospital for post-intervention observation and continued yuliya gement of presenting symptoms with probable discharge the following day. Dictated By: THAI KISER/JOHNNA Conf#: [id number] DID#: [id number]
[2019-01-02] MEDS ORDERED: DEXTROSE 50% 50 ML SYRINGE IV PRN ×2 (16:30)
[2019-01-02] MEDS ORDERED: GLUCAGON 1 MG INJ IM PRN (16:30)
[2019-01-02] MEDS ORDERED: GLUCOSE GEL 15 GRAM TUBE PO PRN ×2 (16:30)
[2019-01-02] MEDS ORDERED: GLUCOSE GEL 15 GRAM TUBE BUCCAL PRN (16:30)
[2019-01-02] MEDS ORDERED: NITROGLYCERIN (SL) 0.4 MG TAB SL PRN (16:30)
--- NOTE | 2019-01-02 16:33 | HP ---
Date/Time of Note Date/Time of Note DATE: 01/02/19 TIME: 16:24 Assessment/Plan VTE Prophylaxis Risk score (from [facility] [place])>0 risk: 2 SCD applied (from [facility] [place]): No SCD contraindicated: other Pharmacological prophylaxis: other Pharm contraindication: other Lines/Catheters IV Catheter Type (from [facility]): Peripheral IV Urinary Cath still in place: No Assessment/Plan Assessment/Plan - Ongoing chest pain - resolved - SP Left Heart Cath - SP Percutaneous transluminal coronary angioplasty with placement of drug- eluting stent x1 to posterolateral branch right coronary artery, 2.5 x 15 mm. - admit to tele - per cardio - cardiac diet - see admission orders - DVT prophylaxis - DM - glycemic control - HTN - resume home meds- desirae León - Former Smoker - reinforced; Provide smoking cessation - CVA W/ Left sided weakness - cont to monitor for change in condition - CAD - SP CABBAGE - Hyperlipidemias - con statin - DVT prophylaxis= ASA - Disposition- anticipate discharge tomorrow when stable - Patient seen in collaboration with DR Jaramillo. dw staff Result Diagram: 01/02/19 0735 01/02/19 0747 Results 24hrs Laboratory Tests Test 01/02/19 07:35 01/02/19 07:39 01/02/19 07:47 White Blood Count 8.9 Red Blood Count 4.80 Hemoglobin 15.1 Hematocrit 45.0 Mean Corpuscular Volume 93.8 Mean Corpuscular Hemoglobin 31.5 Mean Corpuscular Hemoglobin Concent 33.6 Red Cell Distribution Width 12.8 Platelet Count 175 Mean Platelet Volume 11.4 H Immature Granulocytes % 0.600 H Neutrophils % 55.6 Lymphocytes % 33.0 Monocytes % 8.0 Eosinophils % 2.0 Basophils % 0.8 Nucleated Red Blood Cells % 0.0 Immature Granulocytes # 0.050 H Neutrophils # 4.9 Lymphocytes # 2.9 Monocytes # 0.7 Eosinophils # 0.2 Basophils # 0.1 Nucleated Red Blood Cells # 0.0 Prothrombin Time 11.5 L Prothrombin Time Ratio 0.9 INR International Normalized Ratio 0.83 Activated Partial Thromboplast Time 26.8 B-Type Natriuretic Peptide 205 H Triglycerides Level 617 H Cholesterol Level 289 H LDL Cholesterol, Calculated 132 HDL Cholesterol 34 Cholesterol/HDL Ratio 8.5 Bedside Glucose 180 Sodium Level 139 Potassium Level 4.4 Chloride Level 103 Carbon Dioxide Level 24 Anion Gap 12 Blood Urea Nitrogen 18 Creatinine 1.14 Est Glomerular Filtrat Rate mL/min > 60 Glucose Level 176 Calcium Level 10.1 HPI/ROS Admit Date/Time Admit Date/Time ROS Mr. 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 However per patient his chest pain continued. Patient was brought to [facility] in cardiac catheterization lab to assess for the possibility of recurrent significant obstructive coronary artery disease lending to symptoms of chest pain and his subsequent ongoing chest pain. He underwent Percutaneous transluminal coronary angioplasty with placement of drug-eluting stent x1 to posterolateral branch right coronary artery, 2.5 x [address] León today. Patient is admitted under Dr Jaramillo for further evaluation and treatment. Patient is seen in room. During assessment; patient has NAD; feels better. He denies any chest pain, shortness of breath, palpitations. headache, right or left calf pain, abdominal pain, nausea/vomitting/diarrhea. Family at bed side- all Qs answered.Plan of care reviewed with family and staff ; Constitutional: improved Eyes: no complaints ENT: no complaints Respiratory: no complaints Cardiovascular: no complaints Gastrointestinal: no complaints Genitourinary: no complaints Musculoskeletal: no complaints Skin: no complaints Neurologic: no complaints Endocrine: no complaints Lymphatic: no complaints Psychological: nl mood/affect PMH/Family/Social Past Medical History Medical History: coronary artery disease, diabetes, high cholesterol, hypertension Medications Current Medications Aspirin (Halfprin) 81 mg DAILY PO ; Start 01/03/19 at 09:00 Ticagrelor (Brilinta) 90 mg BID PO ; Start 01/02/19 at 21:00 Acetaminophen (Tylenol Tab) 650 mg Q4H PRN PO PAIN; Start 01/02/19 at 11:00 Oxycodone/ Acetaminophen (Percocet (5/ 325)) 1 tab Q4H PRN PO PAIN; Start 01/02/19 at 11:00 Morphine Sulfate (morphine) 1 mg Q1H PRN IV PAIN Last administered on 01/02/19at 12:48; Admin Dose 1 MG; Start 01/02/19 at 11:00 Zolpidem Tartrate (Ambien) 5 mg HS MAY REPEAT X 1 PRN PO INSOMNIA; Start 01/02/19 at 11:00 Al Hydrox/Mg Hydrox/Simethicone (Mag-Al Plus) 30 ml Q4H PRN PO GASTROINTESTINAL UPSET; Start 01/02/19 at 11:00 Ondansetron HCl (Zofran Inj) 4 mg Q4H PRN IV NAUSEA AND/OR VOMITING; Start 01/02/19 at 11:00 Sodium Chloride 1,000 ml @ 75 mls/hr [id number] IV Last administered on 01/02/19at 12:09; Admin Dose 75 MLS/HR; Start 01/02/19 at 11:30; Stop 01/03/19 at 00:49 Insulin Aspart (Novolog Insulin Pen) NOVOLOG *MILD* ALGORITHM WITH MEALS BEDTIME SC ; Start 01/02/19 at 17:55 Miscellaneous Information (* Miscellaneous Pharmacy Order) Discontinue all previ... ONCE ONCE XX ; Start 01/02/19 at 16:30; Stop 01/02/19 at 16:31 Coded Allergies: No Known Allergies (Verified Allergy, Mild, 01/02/19) Past Surgical History Past Surgical Hx: angioplasty, coronary bypass surgery, other Family History Significant Family History: heart disease, vascular disease, other (stroke) Social History Smoking Status: Never smoker Exam/Review of Systems Vital Signs Vitals Vital Signs Date Temp Pulse Resp B/P (MAP) Pulse Ox O2 O2 Flow FiO2 Time Delivery Rate 01/02/19 97.6 85 18 113/75 97 Room Air 16:06 (88) Exam Constitutional: alert, oriented, well developed Psych: nl mood/affect Head: atraumatic ENMT: nl external ears & nose Neck: non-tender Respiratory: clear to auscultation Cardiovascular: nl pulses, other (s1s2) Gastrointestinal: soft, non-tender Genitourinary - Male: other (deferred) Musculoskeletal: nl extremities to inspection Extremities: normal pulses Neurological: nl speech, other (alert/reposive) Skin: nl turgor Lymph: nontender LIAM CARRILLO Jan 02, 2019 16:33
[2019-01-02] MEDS: FUROSEMIDE 40 MG TAB PO SCH (17:20)
[2019-01-02] MEDS: INSULIN ASPART [NOVOLOG] 3 ML PEN SC SCH ×2 (17:55→20:19)
--- NOTE | 2019-01-02 18:44 | RADRPT ---
Vent Rate: 80 bpm RR Interval: 0 msec OR Interval: 172 msec QRS Duration: 136 msec QT Interval: 418 msec QTC Interval: 482 msec P-R-T [place]: 62 - 4 - 139 degrees Normal sinus rhythm Left bundle branch block Abnormal ECG Electronically Signed By: Chad León
--- NOTE | 2019-01-02 18:44 | RADRPT ---
Vent Rate: 81 bpm RR Interval: 744 msec MO Interval: 168 msec QRS Duration: 139 msec QT Interval: 416 msec QTC Interval: 482 msec P-R-T [place]: 53 - 5 - 138 degrees Sinus rhythm...normal P axis, V-rate 50- 99 Left bundle branch block...QRSd>120, broad/notched R ST elevation secondary to IVCD...Multiple VCG criteria Electronically Signed By: Chad León
[2019-01-02] MEDS: GABAPENTIN 100 MG CAP PO SCH (20:06)
[2019-01-02] MEDS: FERROUS SULFATE (EC) 325 MG TAB PO SCH (20:06)
[2019-01-02] MEDS: RANOLAZINE (SR) 500 MG TAB PO SCH (20:06)
[2019-01-02] MEDS: TICAGRELOR 90 MG TABLET PO SCH (20:13)
[2019-01-02] MEDS ORDERED: INSULIN GLARGINE [LANTus] (100 UNITS/ML) SYG SC SCH (21:00)
[2019-01-02] MEDS ORDERED: ATORVASTATIN 40 MG TAB PO SCH (21:00)
[2019-01-02] MEDS ORDERED: INSULIN GLARGINE [LANtus] 3 ML PEN SC SCH (21:00)
[2019-01-02] MEDS ORDERED: TICAGRELOR 90 MG TABLET PO SCH (21:00)
[2019-01-03] VITALS (9 sets, daily range): BP systolic 98–124; BP diastolic 62–82; PULSE 83–95; RESP 18–20
[2019-01-03] MEDS: FUROSEMIDE 40 MG TAB PO SCH ×2 (05:27→17:19)
[2019-01-03] MEDS ORDERED: PANTOPRAZOLE (EC) 40 MG TAB PO SCH (06:00)
[2019-01-03] MEDS: INSULIN ASPART [NOVOLOG] 3 ML PEN SC SCH ×3 (07:46→17:04)
[2019-01-03] MEDS: FERROUS SULFATE (EC) 325 MG TAB PO SCH (08:25)
[2019-01-03] MEDS: GABAPENTIN 100 MG CAP PO SCH ×2 (08:25→13:08)
[2019-01-03] MEDS: RANOLAZINE (SR) 500 MG TAB PO SCH (08:25)
[2019-01-03] MEDS: TICAGRELOR 90 MG TABLET PO SCH (08:27)
[2019-01-03] MEDS ORDERED: ISOSORBIDE MONONITRATE(SR)60 MG TAB PO SCH (09:00)
[2019-01-03] MEDS ORDERED: ASPIRIN (EC) 81 MG TAB PO SCH (09:00)
[2019-01-03] MEDS ORDERED: SPIRONOLACTONE 25 MG TAB PO SCH (09:00)
--- NOTE | 2019-01-03 12:35 | PN ---
Date/Time of Note Date/Time of Note DATE: 01/03/19 TIME: 12:34 Assessment/Plan VTE Prophylaxis Risk score (from [facility])>0 risk: 1 SCD applied (from [facility] [place]): No SCD contraindicated: other Pharmacological prophylaxis: LMWH Lines/Catheters IV Catheter Type (from [facility] [place] Lock Urinary Cath still in place: No Assessment/Plan Hospital Course - Ongoing chest pain - resolved - SP Left Heart Cath - SP Percutaneous transluminal coronary angioplasty with placement of drug- eluting stent x1 to posterolateral branch right coronary artery, 2.5 x 15 mm. - admit to tele - per cardio - cardiac diet - see admission orders - DVT prophylaxis - DM - glycemic control - HTN - resume home meds- dw Dr León - Former Smoker - reinforced; Provide smoking cessation - CVA W/ Left sided weakness - cont to monitor for change in condition - CAD - SP CABBAGE - Hyperlipidemias - con statin - DVT prophylaxis= ASA Result Diagram: 01/03/19 0734 01/03/19 0734 Results 24hrs Laboratory Tests Test 01/02/19 17:22 01/02/19 19:59 01/03/19 07:34 01/03/19 07:44 Bedside Glucose 253 H 192 258 H White Blood Count 9.8 Red Blood Count 5.10 Hemoglobin 15.5 Hematocrit 47.0 Mean Corpuscular 92.2 Volume Mean Corpuscular 30.4 Hemoglobin Mean Corpuscular 33.0 Hemoglobin Concent Red Cell 12.7 Distribution Width Platelet Count 179 Mean Platelet Volume 11.4 H Immature 0.700 H Granulocytes % Neutrophils % 69.5 Lymphocytes % 19.7 Monocytes % 8.2 Eosinophils % 1.4 Basophils % 0.5 Nucleated Red Blood 0.0 Cells % Immature 0.070 H Granulocytes # Neutrophils # 6.8 Lymphocytes # 1.9 Monocytes # 0.8 Eosinophils # 0.1 Basophils # 0.1 Nucleated Red Blood 0.0 Cells # Sodium Level 141 Potassium Level 4.6 Chloride Level 96 L Carbon Dioxide Level 27 Anion Gap 18 H Blood Urea Nitrogen 23 H Creatinine 1.48 H Est Glomerular 49 L Filtrat Rate mL/min Glucose Level 239 H Calcium Level 10.4 H Creatine Kinase 52 Creatine Kinase 0.4 Index Creatinine Kinase MB < 0.22 (Mass) Troponin I 0.072 Test 01/03/19 11:29 Bedside Glucose 341 H Subjective 24 Hr Interval Summary Free Text/Dictation Patient denies any pain Exam/Review of Systems Exam Vitals Vital Signs Date Temp Pulse Resp B/P (MAP) Pulse Ox O2 O2 Flow FiO2 Time Delivery Rate 01/03/19 98.4 90 20 111/74 94 Room Air 08:17 (86) Intake and Output 01/02/19 01/02/19 01/03/19 1515:00 23:00 07:00 IntakeIntake Total 120 ml 240 ml 1500 ml OutputOutput Total 400 ml 1200 ml BalanceBalance -280 ml 240 ml 300 ml Constitutional: well developed Head: normocephalic, atraumatic Neck: supple Respiratory: clear to auscultation Cardiovascular: regular rate and rhythm Gastrointestinal: soft, non-tender Extremities: normal pulses Results Results 24hrs Laboratory Tests Test 01/02/19 17:22 01/02/19 19:59 01/03/19 07:34 01/03/19 07:44 Bedside Glucose 253 H 192 258 H White Blood Count 9.8 Red Blood Count 5.10 Hemoglobin 15.5 Hematocrit 47.0 Mean Corpuscular 92.2 Volume Mean Corpuscular 30.4 Hemoglobin Mean Corpuscular 33.0 Hemoglobin Concent Red Cell 12.7 Distribution Width Platelet Count 179 Mean Platelet Volume 11.4 H Immature 0.700 H Granulocytes % Neutrophils % 69.5 Lymphocytes % 19.7 Monocytes % 8.2 Eosinophils % 1.4 Basophils % 0.5 Nucleated Red Blood 0.0 Cells % Immature 0.070 H Granulocytes # Neutrophils # 6.8 Lymphocytes # 1.9 Monocytes # 0.8 Eosinophils # 0.1 Basophils # 0.1 Nucleated Red Blood 0.0 Cells # Sodium Level 141 Potassium Level 4.6 Chloride Level 96 L Carbon Dioxide Level 27 Anion Gap 18 H Blood Urea Nitrogen 23 H Creatinine 1.48 H Est Glomerular 49 L Filtrat Rate mL/min Glucose Level 239 H Calcium Level 10.4 H Creatine Kinase 52 Creatine Kinase 0.4 Index Creatinine Kinase MB < 0.22 (Mass) Troponin I 0.072 Test 01/03/19 11:29 Bedside Glucose 341 H Medications Medication Current Medications Aspirin (Halfprin) 81 mg DAILY PO Last administered on 01/03/19at 08:25; Admin Dose 81 MG; Start 01/03/19 at 09:00 Ticagrelor (Brilinta) 90 mg BID PO Last administered on 01/03/19at 08:27; Admin Dose 90 MG; Start 01/02/19 at 21:00 Acetaminophen (Tylenol Tab) 650 mg Q4H PRN PO PAIN; Start 01/02/19 at 11:00 Oxycodone/ Acetaminophen (Percocet (5/ 325)) 1 tab Q4H PRN PO PAIN; Start 01/02/19 at 11:00 Morphine Sulfate (morphine) 1 mg Q1H PRN IV PAIN Last administered on 01/02/19at 12:48; Admin Dose 1 MG; Start 01/02/19 at 11:00 Zolpidem Tartrate (Ambien) 5 mg HS MAY REPEAT X 1 PRN PO INSOMNIA; Start 01/02/19 at 11:00 Al Hydrox/Mg Hydrox/Simethicone (Mag-Al Plus) 30 ml Q4H PRN PO GASTROINTESTINAL UPSET; Start 01/02/19 at 11:00 Ondansetron HCl (Zofran Inj) 4 mg Q4H PRN IV NAUSEA AND/OR VOMITING; Start 01/02/19 at 11:00 Insulin Aspart (Novolog Insulin Pen) NOVOLOG *MILD* ALGORITHM WITH MEALS BEDTIME SC Last administered on 01/03/19at 11:34; Admin Dose 5 UNIT; Start 01/02/19 at 17:55 Miscellaneous Information 1 ea NOTE XX ; Start 01/02/19 at 16:30 Glucose (Glutose) 15 gm Q15M PRN PO DECREASED GLUCOSE; Start 01/02/19 at 16:30 Glucose (Glutose) 22.5 gm Q15M PRN PO DECREASED GLUCOSE; Start 01/02/19 at 16:30 Dextrose (D50w Syringe) 25 ml Q15M PRN IV DECREASED GLUCOSE; Start 01/02/19 at 16:30 Dextrose (D50w Syringe) 50 ml Q15M PRN IV DECREASED GLUCOSE; Start 01/02/19 at 16:30 Glucagon (Glucagen) 1 mg Q15M PRN IM DECREASED GLUCOSE; Start 01/02/19 at 16:30 Glucose (Glutose) 15 gm Q15M PRN BUCCAL DECREASED GLUCOSE; Start 01/02/19 at 16:30 Atorvastatin Calcium (Lipitor) 40 mg QHS PO Last administered on 01/02/19at 20:06; Admin Dose 40 MG; Start 01/02/19 at 21:00 Ferrous Sulfate (Ferrous Sulfate (Ec)) 325 mg BID PO Last administered on 01/03/19 08:25; Admin Dose 325 MG; Start 01/02/19 at 21:00 Gabapentin (Neurontin) 100 mg TID PO Last administered on 01/03/19 08:25; Admin Dose 100 MG; Start 01/02/19 at 21:00 Nitroglycerin (Nitroglycerin (Sl Tab) 0.4 Mg) 1 tab [id number] PRN SL CHEST PAIN; Start 01/02/19 at 16:30 Pantoprazole (Protonix Tab) 40 mg DAILY@0600 PO Last administered on 01/03/19 05:28; Admin Dose 40 MG; Start 01/03/19 at 06:00 Ranolazine (Ranexa) 500 mg Q12 PO Last administered on 01/03/19 08:25; Admin Dose 500 MG; Start 01/02/19 at 21:00 Carvedilol (Coreg) 25 mg BID PO Last administered on 01/03/19 08:26; Admin Dose 25 MG; Start 01/02/19 at 21:00 Furosemide (Lasix) 40 mg BID DIURETICS PO Last administered on 01/03/19 05:27; Admin Dose 40 MG; Start 01/02/19 at 18:00 Isosorbide Mononitrate (Imdur) 60 mg DAILY PO Last administered on 01/03/19 08:26; Admin Dose 60 MG; Start 01/03/19 at 09:00 Spironolactone (Aldactone) 25 mg DAILY PO Last administered on 01/03/19 08:25; Admin Dose 25 MG; Start 01/03/19 at 09:00 Insulin Glargine (Lantus) 5 units QHS SC Last administered on 01/02/19 20:47; Admin Dose 5 UNITS; Start 01/02/19 at 21:00 SANTO SHARMA Jan 03, 2019 12:35
--- NOTE | 2019-01-03 15:02 | CONS ---
Consult Date/Type/Reason Admit Date/Time Initial Consult Date Date/Time of Note DATE: 01/03/19 TIME: 14:57 Subjective NO acute events - pt comfortable -ambulatory - site looks well - dispo planned. ROS: No fever, no chills, no nausea, no vomiting, no diarrhea/constipation No recent weight changes No chest pain, no PND, no orthopnea - mild SOB, chronic No dizziness, blurred vision No thirst, no heat or cold intolerance Objective Vitals Vital Signs Date Temp Pulse Resp B/P (MAP) Pulse Ox O2 O2 Flow FiO2 Time Delivery Rate 01/03/19 98.8 92 18 98/62 (74) 95 Room Air 12:43 Intake and Output 01/02/19 01/02/19 01/03/19 1515:00 23:00 07:00 IntakeIntake Total 120 ml 240 ml 1500 ml OutputOutput Total 400 ml 1200 ml BalanceBalance -280 ml 240 ml 300 ml Exam General: WN/WD/NAD, AOx 3 HEENT: Unicetric/atraumatic/EOMI (follows commands) NECK: JVD elevated, no thyromegaly Lymph: no lymphadenopathy HEART: regular with no S3, II/ systolic murmur at apex LUNGS: Coarse sounds ABD: soft, NT, ND, +BS : Intact Neuro: non focal SKIN: chronic changes, C site looks well EXT: trace edema Results/Medications Result Diagram: 01/03/19 0734 01/03/19 0734 Results 24 hrs Laboratory Tests Test 01/02/19 17:22 01/02/19 19:59 01/03/19 07:34 01/03/19 07:44 Bedside Glucose 253 H 192 258 H White Blood Count 9.8 Red Blood Count 5.10 Hemoglobin 15.5 Hematocrit 47.0 Mean Corpuscular 92.2 Volume Mean Corpuscular 30.4 Hemoglobin Mean Corpuscular 33.0 Hemoglobin Concent Red Cell 12.7 Distribution Width Platelet Count 179 Mean Platelet Volume 11.4 H Immature 0.700 H Granulocytes % Neutrophils % 69.5 Lymphocytes % 19.7 Monocytes % 8.2 Eosinophils % 1.4 Basophils % 0.5 Nucleated Red Blood 0.0 Cells % Immature 0.070 H Granulocytes # Neutrophils # 6.8 Lymphocytes # 1.9 Monocytes # 0.8 Eosinophils # 0.1 Basophils # 0.1 Nucleated Red Blood 0.0 Cells # Sodium Level 141 Potassium Level 4.6 Chloride Level 96 L Carbon Dioxide Level 27 Anion Gap 18 H Blood Urea Nitrogen 23 H Creatinine 1.48 H Est Glomerular 49 L Filtrat Rate mL/min Glucose Level 239 H Calcium Level 10.4 H Creatine Kinase 52 Creatine Kinase 0.4 Index Creatinine Kinase MB < 0.22 (Mass) Troponin I 0.072 Test 01/03/19 11:29 Bedside Glucose 341 H Home Meds Reported Medications Gabapentin* (Gabapentin*) 100 Mg Capsule, 100 MG PO TID, #90 CAP 01/02/19 Metformin Hcl* (Metformin Hcl*) 1,000 Mg Tablet, 1000 MG PO WITH BREAKFAST DINNE, #60 TAB 01/02/19 Ranolazine* (Ranexa*) 500 Mg Tab.sr.12h, 500 MG PO Q12, TAB 01/02/19 Insulin Glargine,Hum.rec.anlog (Basaglar Kwikpen U-100) 100 Unit/1 Ml Insuln.pen, 5 UNIT SC QHS, EA 01/02/19 Insulin Lispro (Humalog Kwikpen) 200 Unit/1 Ml Insuln.pen, 7 UNIT SQ BID, EA (ADMELOG) 01/02/19 Empagliflozin (Jardiance) 25 Mg Tablet, 25 MG PO DAILY, TAB 01/02/19 Sitagliptin* (Januvia*) 100 Mg Tablet, 100 MG PO DAILY, #30 TAB 01/02/19 Ticagrelor* (Brilinta*) 90 Mg Tablet, 90 MG PO Q12, TAB 01/07/18 Aspirin (Low Dose Aspirin) 81 Mg Tablet.dr, 81 MG PO DAILY, #30 TAB 01/07/18 Ergocalciferol (Vitamin D2) (VITAMIN D2) 50,000 Unit Capsule, 54279 UNIT PO EVERY SATURDAY, CAP 01/07/18 Furosemide* (Lasix*) 40 Mg Tablet, 40 MG PO BID, TAB 01/07/18 Carvedilol* (Carvedilol*) 25 Mg Tablet, 25 MG PO BID, #60 TAB 01/07/18 Pantoprazole* (Protonix*) 40 Mg Tablet.dr, 40 MG PO DAILY, TAB 01/07/18 Nitroglycerin* (Nitrostat*) 0.4 Mg Tab.subl, 0.4 MG SL Q5MIN PRN for CHEST PAIN, BOTTLE 01/07/18 Isosorbide Mononitrate* (Isosorbide Mononitrate*) 60 Mg Tab.er.24h, 60 MG PO DAILY, TAB 01/07/18 Atorvastatin* (Atorvastatin*) 40 Mg Tablet, 40 MG PO QHS, #30 TAB 01/07/18 Spironolactone* (Aldactone*) 25 Mg Tablet, 25 MG PO DAILY, #30 TAB 01/07/18 Ferrous Sulfate* (Ferrous Sulfate*) 325 Mg Tabec, 325 MG PO BID, TAB 01/07/18 Sacubitril/Valsartan (Entresto 24 mg-26 mg Tablet) 1 Each Tablet, 1 EACH PO BID, TAB 01/07/18 Discontinued Reported Medications Colesevelam Hcl* (Welchol*) 625 Mg Tablet, 1250 MG PO BID, TAB 01/07/18 Lisinopril* (Lisinopril*) 2.5 Mg Tablet, 2.5 MG PO DAILY, #30 TAB 01/07/18 Discontinued Scripts Linagliptin (TRADJENTA) 5 Mg Tablet, 5 MG PO DAILY for 30 Days, #30 TAB 5 Refills Prov:SARITHA ECHEVERRIA MD 01/09/18 Insulin Aspart* (Novolog Insulin Pen*) 100 Unit/Ml Soln, 14 UNIT SC WITH MEALS for 30 Days, #5 SYR 5 Refills Prov:SARITHA ECHEVERRIA MD 01/09/18 Empagliflozin (Jardiance) 10 Mg Tablet, 25 MG PO DAILY@08 for 30 Days, #30 TAB 5 Refills Prov:SARITHA ECHEVERRIA MD 01/09/18 Insulin Glargine,Hum.rec.anlog (Basaglar Kwikpen U-100) 100 Unit/1 Ml Insuln.pen, 29 UNIT SC QHS for 30 Days, #3 SYR 5 Refills Prov:SARITHA ECHEVERRIA MD 01/09/18 Metformin Hcl* (Metformin Hcl*) 500 Mg Tablet, 1000 MG PO WITH BREAKFAST DINNE for 30 Days, #60 TAB 5 Refills Prov:SARITHA ECHEVERRIA MD 01/09/18 Medications Current Medications Aspirin (Halfprin) 81 mg DAILY PO Last administered on 01/03/19at 08:25; Admin Dose 81 MG; Start 01/03/19 at 09:00 Ticagrelor (Brilinta) 90 mg BID PO Last administered on 01/03/19at 08:27; Admin Dose 90 MG; Start 01/02/19 at 21:00 Acetaminophen (Tylenol Tab) 650 mg Q4H PRN PO PAIN; Start 01/02/19 at 11:00 Oxycodone/ Acetaminophen (Percocet (5/ 325)) 1 tab Q4H PRN PO PAIN; Start 01/02/19 at 11:00 Morphine Sulfate (morphine) 1 mg Q1H PRN IV PAIN Last administered on 01/02/19at 12:48; Admin Dose 1 MG; Start 01/02/19 at 11:00 Zolpidem Tartrate (Ambien) 5 mg HS MAY REPEAT X 1 PRN PO INSOMNIA; Start 01/02/19 at 11:00 Al Hydrox/Mg Hydrox/Simethicone (Mag-Al Plus) 30 ml Q4H PRN PO GASTROINTESTINAL UPSET; Start 01/02/19 at 11:00 Ondansetron HCl (Zofran Inj) 4 mg Q4H PRN IV NAUSEA AND/OR VOMITING; Start 01/02/19 at 11:00 Insulin Aspart (Novolog Insulin Pen) NOVOLOG *MILD* ALGORITHM WITH MEALS BEDTIME SC Last administered on 01/03/19at 11:34; Admin Dose 5 UNIT; Start 01/02/19 at 17:55 Miscellaneous Information 1 ea NOTE XX ; Start 01/02/19 at 16:30 Glucose (Glutose) 15 gm Q15M PRN PO DECREASED GLUCOSE; Start 01/02/19 at 16:30 Glucose (Glutose) 22.5 gm Q15M PRN PO DECREASED GLUCOSE; Start 01/02/19 at 16:30 Dextrose (D50w Syringe) 25 ml Q15M PRN IV DECREASED GLUCOSE; Start 01/02/19 at 16:30 Dextrose (D50w Syringe) 50 ml Q15M PRN IV DECREASED GLUCOSE; Start 01/02/19 at 16:30 Glucagon (Glucagen) 1 mg Q15M PRN IM DECREASED GLUCOSE; Start 01/02/19 at 16:30 Glucose (Glutose) 15 gm Q15M PRN BUCCAL DECREASED GLUCOSE; Start 01/02/19 at 16:30 Atorvastatin Calcium (Lipitor) 40 mg QHS PO Last administered on 01/02/19at 20:06; Admin Dose 40 MG; Start 01/02/19 at 21:00 Ferrous Sulfate (Ferrous Sulfate (Ec)) 325 mg BID PO Last administered on 01/03/19 08:25; Admin Dose 325 MG; Start 01/02/19 at 21:00 Gabapentin (Neurontin) 100 mg TID PO Last administered on 01/03/19 13:08; Admin Dose 100 MG; Start 01/02/19 at 21:00 Nitroglycerin (Nitroglycerin (Sl Tab) 0.4 Mg) 1 tab [id number] PRN SL CHEST PAIN; Start 01/02/19 at 16:30 Pantoprazole (Protonix Tab) 40 mg DAILY@0600 PO Last administered on 01/03/19 05:28; Admin Dose 40 MG; Start 01/03/19 at 06:00 Ranolazine (Ranexa) 500 mg Q12 PO Last administered on 01/03/19 08:25; Admin Dose 500 MG; Start 01/02/19 at 21:00 Carvedilol (Coreg) 25 mg BID PO Last administered on 01/03/19 08:26; Admin Dose 25 MG; Start 01/02/19 at 21:00 Furosemide (Lasix) 40 mg BID DIURETICS PO Last administered on 01/03/19 05:27; Admin Dose 40 MG; Start 01/02/19 at 18:00 Isosorbide Mononitrate (Imdur) 60 mg DAILY PO Last administered on 01/03/19 08:26; Admin Dose 60 MG; Start 01/03/19 at 09:00 Spironolactone (Aldactone) 25 mg DAILY PO Last administered on 01/03/19 08:25; Admin Dose 25 MG; Start 01/03/19 at 09:00 Insulin Glargine (Lantus) 5 units QHS SC Last administered on 01/02/19 20:47; Admin Dose 5 UNITS; Start 01/02/19 at 21:00 Assessment/Plan Hospital Course (Demo Recall) 1. Coronary artery disease, status post coronary artery bypass graft surgery - s/p RCA stent now, on med rx - stable. 2. BP - in good range now, con't to follow. 3. DM - on therapy now, con't med rx. 4. HTN - well controlled, con't med Rx. 5. ARF - Cr stable - con't to avoid nephrotoxic meds. AMALIA CASTILLO MD Jan 03, 2019 15:02
--- NOTE | 2019-01-03 17:40 | DS ---
Date/Time of Note Date/Time of Note DATE: 01/03/19 TIME: 17:38 Discharge Summary Admission/Discharge Info Admit Date/Time Discharge Date/Time 01/03/19 Discharge Diagnosis - Ongoing chest pain - resolved - SP Left Heart Cath - SP Percutaneous transluminal coronary angioplasty with placement of drug- eluting stent x1 to posterolateral branch right coronary artery, 2.5 x 15 mm. - admit to tele - per cardio - cardiac diet - see admission orders - DVT prophylaxis - DM - glycemic control - HTN - resume home meds- desirae [place] - Former Smoker - reinforced; Provide smoking cessation - CVA W/ Left sided weakness - cont to monitor for change in condition - CAD - SP CABBAGE - Hyperlipidemias - con statin - DVT prophylaxis= ASA Patient Condition: Fair Consults Cardiology Procedures PCI Hx of Present Illness Patient with CAD, diabetes comes in with chest pain. Hospital Course Patient with CAD, diabetes comes in with chest pain. Patient underwent PCI with stent. Patient tolerated the procedure and when felt to be stable, patient was sent home. - Ongoing chest pain - resolved - SP Left Heart Cath - SP Percutaneous transluminal coronary angioplasty with placement of drug- eluting stent x1 to posterolateral branch right coronary artery, 2.5 x 15 mm. - admit to tele - per cardio - cardiac diet - see admission orders - DVT prophylaxis - DM - glycemic control - HTN - resume home meds- desirae [place] - Former Smoker - reinforced; Provide smoking cessation - CVA W/ Left sided weakness - cont to monitor for change in condition - CAD - SP CABBAGE - Hyperlipidemias - con statin - DVT prophylaxis= ASA Home Meds Reported Medications Gabapentin* (Gabapentin*) 100 Mg Capsule, 100 MG PO TID, #90 CAP 01/02/19 Metformin Hcl* (Metformin Hcl*) 1,000 Mg Tablet, 1000 MG PO WITH BREAKFAST DINNE, #60 TAB 01/02/19 Ranolazine* (Ranexa*) 500 Mg Tab.sr.12h, 500 MG PO Q12, TAB 01/02/19 Insulin Glargine,Hum.rec.anlog (Basaglar Kwikpen U-100) 100 Unit/1 Ml Insuln.pen, 5 UNIT SC QHS, EA 01/02/19 Insulin Lispro (Humalog Kwikpen) 200 Unit/1 Ml Insuln.pen, 7 UNIT SQ BID, EA (ADMELOG) 01/02/19 Empagliflozin (Jardiance) 25 Mg Tablet, 25 MG PO DAILY, TAB 01/02/19 Sitagliptin* (Januvia*) 100 Mg Tablet, 100 MG PO DAILY, #30 TAB 01/02/19 Ticagrelor* (Brilinta*) 90 Mg Tablet, 90 MG PO Q12, TAB 01/07/18 Aspirin (Low Dose Aspirin) 81 Mg Tablet.dr, 81 MG PO DAILY, #30 TAB 01/07/18 Ergocalciferol (Vitamin D2) (VITAMIN D2) 50,000 Unit Capsule, 56171 UNIT PO EVERY SATURDAY, CAP 01/07/18 Furosemide* (Lasix*) 40 Mg Tablet, 40 MG PO BID, TAB 01/07/18 Carvedilol* (Carvedilol*) 25 Mg Tablet, 25 MG PO BID, #60 TAB 01/07/18 Pantoprazole* (Protonix*) 40 Mg Tablet.dr, 40 MG PO DAILY, TAB 01/07/18 Nitroglycerin* (Nitrostat*) 0.4 Mg Tab.subl, 0.4 MG SL Q5MIN PRN for CHEST PAIN, BOTTLE 01/07/18 Isosorbide Mononitrate* (Isosorbide Mononitrate*) 60 Mg Tab.er.24h, 60 MG PO DAILY, TAB 01/07/18 Atorvastatin* (Atorvastatin*) 40 Mg Tablet, 40 MG PO QHS, #30 TAB 01/07/18 Spironolactone* (Aldactone*) 25 Mg Tablet, 25 MG PO DAILY, #30 TAB 01/07/18 Ferrous Sulfate* (Ferrous Sulfate*) 325 Mg Tabec, 325 MG PO BID, TAB 01/07/18 Sacubitril/Valsartan (Entresto 24 mg-26 mg Tablet) 1 Each Tablet, 1 EACH PO BID, TAB 01/07/18 Discontinued Reported Medications Colesevelam Hcl* (Welchol*) 625 Mg Tablet, 1250 MG PO BID, TAB 01/07/18 Lisinopril* (Lisinopril*) 2.5 Mg Tablet, 2.5 MG PO DAILY, #30 TAB 01/07/18 Discontinued Scripts Linagliptin (TRADJENTA) 5 Mg Tablet, 5 MG PO DAILY for 30 Days, #30 TAB 5 Refills Prov:SARITHA ECHEVERRIA MD 01/09/18 Insulin Aspart* (Novolog Insulin Pen*) 100 Unit/Ml Soln, 14 UNIT SC WITH MEALS f or 30 Days, #5 SYR 5 Refills Prov:SARITHA ECHEVERRIA MD 01/09/18 Empagliflozin (Jardiance) 10 Mg Tablet, 25 MG PO DAILY@08 for 30 Days, #30 TAB 5 Refills Prov:SARITHA ECHEVERRIA MD 01/09/18 Insulin Glargine,Hum.rec.anlog (Basaglar Kwikpen U-100) 100 Unit/1 Ml Insuln.pen, 29 UNIT SC QHS for 30 Days, #3 SYR 5 Refills Prov:SARITHA ECHEVERRIA MD 01/09/18 Metformin Hcl* (Metformin Hcl*) 500 Mg Tablet, 1000 MG PO WITH BREAKFAST DINNE for 30 Days, #60 TAB 5 Refills Prov:SARITHA ECHEVERRIA MD 01/09/18 Primary Care Provider Elise Rene MD Pending Labs Laboratory Tests Test 01/02/19 19:59 01/03/19 07:34 01/03/19 07:44 01/03/19 11:29 Bedside 192 258 341 Glucose mg/dL (70-220) mg/dL (70-220) mg/dL (70-220) White Blood 9.8 Count 10^3/ul (4.8-1 0.8) Red Blood 5.10 Count 10^6/ul (4.70- 6.10) Hemoglobin 15.5 g/dl (14.0-18. 0) Hematocrit 47.0 % (42.0-52.0) Mean 92.2 Corpuscular fl (82.0-101.0 Volume ) Mean 30.4 Corpuscular pg (29.0-33.0) Hemoglobin Mean 33.0 Corpuscular g/dl (32.0-37. Hemoglobin Conc 0) ent Red Cell 12.7 Distribution % (11.5-14.5) Width Platelet Count 179 10^3/UL (140-4 15) Mean Platelet 11.4 Volume fl (7.4-10.4) Immature 0.700 Granulocytes % % (0.001-0.429 ) Neutrophils % 69.5 % (39.0-77.0) Lymphocytes % 19.7 % (15.0-51.0) Monocytes % 8.2 % (0.0-11.0) Eosinophils % 1.4 % (0.0-7.0) Basophils % 0.5 % (0.0-2.0) Nucleated Red 0.0 Blood Cells % /100WBC (0.0-0 .0) Immature 0.070 Granulocytes # 10^3/ul (0.0-0 .031) Neutrophils # 6.8 10^3/ul (1.6-7 .5) Lymphocytes # 1.9 10^3/ul (0.8-2 .9) Monocytes # 0.8 10^3/ul (0.3-0 .9) Eosinophils # 0.1 10^3/ul (0.0-0 .5) Basophils # 0.1 10^3/ul (0.0-0 .1) Nucleated Red 0.0 Blood Cells # 10^3/ul (0.0-0 .0) Sodium Level 141 mmol/L (135-14 4) Potassium 4.6 Level mmol/L (3.5-5. 1) Chloride Level 96 mmol/L (97-110 ) Carbon Dioxide 27 Level mmol/L (21-31) Anion Gap 18 (5-13) Blood Urea 23 Nitrogen mg/dl (7-20) Creatinine 1.48 mg/dl (0.61-1. 24) Est Glomerular 49 Filtrat mL/min (>60) Rate mL/min Glucose Level 239 mg/dl (70-220) Calcium Level 10.4 mg/dl (8.4-10. 2) Creatine 52 Kinase IU/L (23-200) Creatine Kinase 0.4 Index Creatinine < 0.22 Kinase MB ng/ml (0.0-2.4 (Mass) ) Troponin I 0.072 ng/ml (0.000-0 .120) Test 01/03/19 17:01 Bedside 238 Glucose mg/dL (70-220) SANTO SHARMA Jan 03, 2019 17:40
== END 2019-01-03 18:08 | disposition home or self-care (01) ==
LOC: SDS 07:13 → TEL 15:33 → SDS 01-03 18:08
PROVIDERS: ATTEND Internal Medicine
DX: I25.10 Atherosclerotic heart disease of native coronary artery without angina pectoris (principal); E11.9 Type 2 diabetes mellitus without complications; I10 Essential (primary) hypertension; I69.354 Hemiplegia and hemiparesis following cerebral infarction affecting left non-dominant side
CPT/HCPCS: 71045; 80048; 80061; 82550; 82553; 82962; 83880; 84484; 85025; 85610; 85730; 92928; 93005; 93459; C1725; C1876; C1887; C1894; J0583; J1644; J1815; J2250; J2270; J3010; Q9967; Z7610